=== PATIENT | male | born 1945 | race Caucasian/White ===

== ENCOUNTER → 2018-09-02 14:36 | Emergency (ER) | payer MEDICARE ==
[~2018-09-02 14:36] MED LIST: Dexamethasone IV* 4 MG/ML 1 ML (4 MG) IM ONE; Ketorolac INJ* 60 MG/2 ML VIAL IM ONE; Methocarbamol TAB* 500 MG PO ONE; oxyCODONE/Acetamin 5/325 MG* TAB PO ONE
--- OUTSIDE RECORDS SUMMARY | 2018-09-02 14:42 | XMS REPORT | Continuity of Care Document ---
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 Onset: 2015 Vitreous degeneration Kenton Oquendo M.D. Onset: 12/21/2014 Epiretinal membrane Kenton Oquendo M.D. Onset: 07/27/2014 Nuclear senile cataract Kenton Oquendo M.D. Onset: 12/28/2013 Presbyopia Kenton Oquendo M.D. Onset: 09/02/2013 Open-angle glaucoma Kenton Oquendo M.D. Onset: 09/02/2013 Retinal disorder Kenton Oquendo M.D. Onset: 09/02/2013 Family History Date Family Member(s) Observation Comments General Glaucoma General High BP Father Noncontributory Mother Glaucoma Mother Cataract Mother High BP Mother Cancer Social History Type Date Description Comments Sex Unknown ETOH Use Denies alcohol use Tobacco Use Start: Unknown Patient has never smoked Smoking Status Reviewed: 08/31/18 Patient has never smoked Allergies, Adverse Reactions, Alerts Active Allergies Reaction Severity Comments Date NKDA 08/30/2013 Seasonal 10/22/2016 Medications Active Medications SIG Qnty Indications Ordering Date Provider Latanoprost 1 drops both 7.5ml Pradeep Joseph, 05/17/2018 0.005% Solution eyes every OD night Dutasteride Unknown 0.5mg Capsules Alfuzosin HCL ER Unknown 10mg Tablets ER 24HR Hydrochlorothiazide Mandy MILIAN, 25mg Tablets Benigno Doxycycline Hyclate take 2 capsules Unknown 100mg by mouth as Capsules Single Dose Pantoprazole Sodium take 1 tablet Unknown 40mg Tablets by mouth once DR rachna Calcipotriene MD Dominguez, 0.005% Cream Rohit Sucralfate Unknown 1gm Tablets Nexium MD Dominguez, 40mg Capsules DR Bee Lansoprazole MD Dominguez, 30mg Capsules DR Bee Omeprazole Unknown Capsules Chlordiazepoxide Unknown HCL/Clidinium Fowler Capsules Amitriptyline HCL Unknown Tablets Aleve as needed Unknown 220mg Tablets History Medications Latanoprost 1 drops both 7.5ml Pradeep Joseph, 07/13/2017 - 0.005% Solution eyes every night OD 05/17/2018 Latanoprost 1 drops both 7.500ml Pradeep Joseph, 03/24/2017 - 0.005% Solution eyes every night OD 07/13/2017 Latanoprost 1 drops both 7.5ml Pradeep Joseph, 12/17/2016 - 0.005% Solution eyes every night OD 03/24/2017 Latanoprost 1 drops both 7.5ml Pradeep Joseph, 09/22/2016 - 0.005% Solution eyes every night OD 12/17/2016 Travatan Z one drop every 7.5ml Pradeep Joseph, 08/18/2016 - 0.004% Solution night at bedtime OD 09/22/2016 both eyes Latanoprost 1 drops both 7.5ml Pradeep Joseph, 05/16/2016 - 0.005% Solution eyes every night OD 09/22/[address] 1 drop 2.5units Kenton Oquendo, 09/02/2013 - 0.005% Solution into both eyes M.D. 05/16/2016 every night Ciprofloxacin HCL Instill 5 Drops Unknown - 0.3% In Ears Every 12 08/13/2017 Solution Hours For 10 Days Vital Signs Date Vital Result Comment 06/01/2018 9:15am Intraocular Pressure Right Eye 15 mmHg Intraocular Pressure Left Eye 14 mmHg 03/01/2018 9:18am Intraocular Pressure Right Eye 15 mmHg Intraocular Pressure Left Eye 14 mmHg 11/13/2017 8:52am Intraocular Pressure Right Eye 14 mmHg Intraocular Pressure Left Eye 14 mmHg 08/13/2017 9:11am Intraocular Pressure Right Eye 15 mmHg Intraocular Pressure Left Eye 15 mmHg 01/22/2017 3:39pm Intraocular Pressure Right Eye 14 mmHg Intraocular Pressure Left Eye 14 mmHg 10/22/2016 8:15am Intraocular Pressure Right Eye 14 mmHg Intraocular Pressure Left Eye 14 mmHg 07/23/2016 9:13am Intraocular Pressure Right Eye 15 mmHg Intraocular Pressure Left Eye 15 mmHg 04/24/2016 9:20am Intraocular Pressure Right Eye 14 mmHg Intraocular Pressure Left Eye 14 mmHg 01/02/2016 11:57am Intraocular Pressure Right Eye 15 mmHg Intraocular Pressure Left Eye 15 mmHg 07/23/2015 8:15am Intraocular Pressure Right Eye 15 mmHg Intraocular Pressure Left Eye 16 mmHg 04/20/2015 1:37pm Intraocular Pressure Right Eye 14 mmHg Intraocular Pressure Left Eye 14 mmHg 11/09/2014 8:52am Intraocular Pressure Right Eye 15 mmHg Intraocular Pressure Left Eye 15 mmHg 07/27/2014 8:04am Intraocular Pressure Right Eye 18 mmHg Intraocular Pressure Left Eye 18 mmHg 04/25/2014 9:38am Intraocular Pressure Right Eye 15 mmHg Intraocular Pressure Left Eye 14 mmHg 12/28/2013 10:08am Intraocular Pressure Right Eye 15 mmHg Intraocular Pressure Left Eye 15 mmHg 10/19/2013 3:02pm Intraocular Pressure Right Eye 14 mmHg Intraocular Pressure Left Eye 14 mmHg 09/22/2013 9:58am Intraocular Pressure Right Eye 16 mmHg Intraocular Pressure Left Eye 17 mmHg 09/02/2013 10:54am Intraocular Pressure Right Eye 23 mmHg Intraocular Pressure Left Eye 23 mmHg Procedures Date Code Description Status 08/31/2018 07615 Oct, Optic Nerve Completed 08/31/2018 02650 Eye Exam Est Intermediate Completed 06/01/2018 53708 Visual Field Exam Extended, Unilateral Or Bilateral Completed 06/01/2018 54354 Eye Exam Est Intermediate Completed 11/13/2017 86491 Fundus Photography W/Interpretation & Report Completed 11/13/2017 79832 Ophthalmoscopy Subsequent Completed 11/13/2017 78790 Refraction Completed 11/13/2017 28948 Eye Exam Est Intermediate Completed 08/13/2017 86914 Oct, Optic Nerve Completed 08/13/2017 58509 Eye Exam Est Intermediate Completed 05/05/2017 38823 Visual Field Exam Extended, Unilateral Or Bilateral Completed 05/05/2017 75931 Eye Exam Est Intermediate Completed 10/22/2016 42312 Eye Exam Est Comprehensive Completed 10/22/2016 34535 Refraction Completed 10/22/2016 65717 Ophthalmoscopy Subsequent Completed 10/22/2016 72322 Fundus Photography W/Interpretation & Report Completed 07/23/2016 32914 Oct, Optic Nerve Completed 07/23/2016 11874 Eye Exam Est Intermediate Completed 04/24/2016 35092 Oct Retina Completed 04/24/2016 96485 Visual Field Exam Extended, Unilateral Or Bilateral Completed 04/24/2016 71061 Eye Exam Est Intermediate Completed 01/02/2016 75851 Eye Exam Est Intermediate Completed 10/23/2015 76156 Visual Field Exam Extended, Unilateral Or Bilateral Completed 10/23/2015 71943 Visual Field Exam Extended, Unilateral Or Bilateral Completed 07/23/2015 00567 Eye Exam Est Intermediate Completed 07/23/2015 34783 Refraction Completed 07/23/2015 87215 Fundus Photography W/Interpretation & Report Completed 04/20/2015 27292 Oct, Optic Nerve Completed 04/20/2015 21420 Eye Exam Est Intermediate Completed 01/11/2015 80530 Ophthalmoscopy Subsequent Completed 01/11/2015 88032 Eye Exam Est Intermediate Completed 12/21/2014 15637 Ophthalmoscopy Subsequent Completed 12/21/2014 81392 Eye Exam Est Intermediate Completed 11/09/2014 60881 Oct Retina Completed 11/09/2014 76706 Visual Field Exam Extended, Unilateral Or Bilateral Completed 11/09/2014 49351 Eye Exam Est Intermediate Completed 07/27/2014 68556 Eye Exam Est Intermediate Completed 07/27/2014 97224 Fundus Photography W/Interpretation & Report Completed 04/25/2014 12922 Refraction Completed 04/25/2014 95573 Eye Exam Est Intermediate Completed 10/19/2013 92418 Visual Field Exam Extended, Unilateral Or Bilateral Completed 10/19/2013 13682 Eye Exam Est Intermediate Completed 09/22/2013 02686 Eye Exam Est Intermediate Completed 09/02/2013 90956 Fundus Photography W/Interpretation & Report Completed 09/02/2013 06401 Refraction Completed 09/02/2013 22317 Eye Exam Est Comprehensive Completed 06/30/2011 02983 Fundus Photography W/Interpretation & Report Completed 06/30/2011 95376 Ophthalmoscopy Initial Completed 06/30/2011 78761 Eye Exam New Comprehensive Completed 06/30/2011 45391 Corneal Pachymetry, Unilateral/Bilateral Completed Encounters Type Date Location Provider Dx Diagnosis Office Visit 03/01/2018 Main Office Pradeep Joseph, OD H40.1131 Primary open-angle 9:15a glaucoma, bilateral, mild stage Office Visit 01/22/2017 Main Office Pradeep Joseph, OD H40.1131 Primary open-angle 3:15p glaucoma, bilateral, mild stage Office Visit 12/28/2013 Main Office Kenton Oquendo, 365.10 Glaucoma Open Angle 10:00a M.D. Unspec 366.16 Cataract Nuclear Sclerosis Plan of Treatment 08/31/2018 - Pradeep Joseph, ODH40.1131 Primary open-angle glaucoma, bilateral, mild [id number] Age-related nuclear cataract, bilateralFollow up:3 mos full, sooner PRN
--- OUTSIDE RECORDS SUMMARY | 2018-09-02 14:42 | XMS REPORT | Continuity of Care Document ---
:1945 External Reference #:[id number] Author Name Benigno Galvan M.D. Address [address] [facility] [address] [place] [address] Care Team Providers Name Role Phone HCP/LW on file Primary Care Physician Unavailable Payers Date Identification Numbers Payment Provider Subscriber Effective: Policy Number: [id number] [facility] [employer] 2010 PayID: [id number] [address] [place] [address] Effective: 2013 Policy Number: [facility] [employer] [id number] PayID: [id number] [address] [place] [address] Problems Active Problems Provider Date Shoulder joint pain Benigno Galvan M.D. Onset: 09/21/2013 Irritable bowel syndrome Benigno Galvan M.D. Onset: 09/21/2013 Secondary polycythemia Benigno Galvan M.D. Onset: 09/21/2013 Glaucoma Benigno Galvan M.D. Onset: 09/21/2013 Essential hypertension Benigno Galvan M.D. Onset: 04/18/2016 Low back pain Benigno Galvan M.D. Onset: 04/18/2016 Degeneration of lumbar intervertebral disc Benigno Galvan M.D. Onset: 04/18 Gastroesophageal reflux disease Benigno Galvan M.D. 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/2017 Family History Date Family Member(s) Observation Comments : (age Father due to 79 Years) ALS/PArkinson's Dz Father Skin Cancer Father Prostate Cancer Dx'd in his late 60s (had symptoms) Mother Skin Cancer : Mother due to Pancreatic (2014) (age 96 Cancer Years) Mother High Blood Pressure Mother Pancreatic Cancer Children 2 daughters Siblings 1 First Brother Hypercholesterolemia First Brother High Blood Pressure First Brother Obesity First Brother Heart Problems First Brother Skin Cancer Maternal Grandfather due to Pancreatic () Cancer Social History Type Date Description Comments Sex Unknown Education Highest Level Completed Post Grad Marital Status Work Status 2007 Retired from [employer]; worked in various capacities ([employer]) Tobacco Use Reviewed: Denies Cigarette Use 01/16/14 Smoking Status Reviewed: Denies Cigarette Use 01/16/14 ETOH Use Denies alcohol use Recreational Drug Use Denies Drug Use Exercise Type/Frequency Exercises regularly Age 1st Brusly 20 Years Old # [facility] [employer] [facility] Partners 1-5 Allergies, Adverse Reactions, Alerts Description No Known Drug Allergies Medications Active Medications SIG Qnty Indications Ordering Date Provider Dutasteride 1 tab by mouth every N40.1 Garrick Aguila, 08/22/2018 0.5mg day for enlarged MD Capsules prostate Sulfamethoxazole/Tri one tab twice daily Rayshawn Flores, 08/20/2018 methoprim DS MD 800-160mg Tablets Sildenafil Citrate 3-5 tabs as needed; 60tabs N52.9 Silco, 07/30/2018 for erectile Ashley Pelaez 20mg Tablets dysfunction; use up to once per day Melatonin 1 per sleep, as K21.9 Unknown 06/15/2018 5mg needed, otc Capsules Ketoconazole as directed Unknown 06/11/2018 2% Shampoo Alfuzosin HCL ER 1 tablet daily, at N40.1 Rayshawn Flores, 06/02/2018 10mg the same time every MD Tablets ER 24HR day, taken right after a meal; for enlarged prostate and to improve bladder emptying PT For Left please evaluate and M25.552 [place], 03/22/2018 Buttock/Hip Pain, treat, modalities as Ashley Pelaez Uncertain Etiology needed, instruct in hep Nexium 24HR 1 by mouth every day Unknown 03/21/[address] Payne Every 12 Hours as Unknown 12/15/2017 220mg Tablets needed for pain Posture-D 1 tab by mouth twice Silcoff, 06/15/2017 Calcium/Magnesium a day Ashley Pelaez [phone] Tablets Aspirin 1 by mouth every day Mandy, 05/27/2017 81mg Tablets for heart disease Ashley Pelaez prevention Osteo Bi-Flex 1 tablet by mouth Unknown 12/14/2016 Advanced Triple three times daily Strength 750mg/137.5 mg/1,000 Iu Tablets Fish Oil 1 by mouth every day Unknown 12/14/2016 1200mg Capsules Folate 1 daily Unknown 12/14/2016 400mcg Vitamin B Complex 1 by mouth once Unknown 12/14/2016 daily Tablets Culturelle/Probiotic 1 po daily OTC Unknown 03/05/2016 s Capsules Preservision Areds 2 1 by mouth twice a Unknown 05/21/2015 day taken with food; Areds 2 Capsules for macular degeneration Gaviscon Extra 2-3 as needed for Unknown 05/21/2015 Strength GERD 160-105mg Chewtabs Move-Free Ultra daily Unknown 04/24/2014 Latanoprost 1 drop each eye H40.9 Kenton Oquendo 09/02/2013 0.005% daily; for glaucoma [facility] Solution Gold Ultimate as directed on L40.9 Unknown Healing Cream With coccyx region, outer [place] ears and forehead-tx for psoriasis Centrum 1 po daily otc Unknown Tablets Coq-10 1 po daily otc Unknown 120mg Capsules Saw [place] 1 po three times OTC Unknown 450mg daily Capsules History Medications Ciprofloxacin HCL 1 by mouth twice a 6tabs Mandy, 06/07/2018 - 500mg day for up to 3 Ashley Pelaez 06/10/2018 Tablets days, for acute diarrhea PT For Right Knee evaluate and M25.561 Mandy, 01/19/2018 - Pain W/ Advanced OA treat, modalities Ashley Pelaez 03/21/2018 as needed, instruct in [facility] M17.11 Melatonin 1 po as directed K21.9 Unknown 12/16/2017 - 1.5mg 06/16/2018 Capsules PT For Bilateral evaluate and treat, M25.542 Benigno Galvan, 09/04/2017 - Hand Pain instruct in Ashley martínez 03/21/2018 modalities prn M25.541 M65.331 Shingrix administer 2 2units Z23 Silcoff, 06/15/2017 - 50mcg Suspension Rec doses as Ashley Pelaez 07/15/2017 directed, per cdc guidelines Hydrochlorothiazide take 1-2 180caps I10 Silcoclaudine, 06/14/2017 - 12.5mg capsules by Ashley Pelaez 06/16/2018 Capsules mouth every 1-2 days, for high blood pressure Apriso 4 tabs by mouth K52.832 Unknown 06/11/2017 - 0.375gm Caps ER 24HR every day for 09/03/2017 chronic diarrhea R19.7 Celecoxib 1 by mouth every 30caps M54.5 Silcoff, 05/27/2017 - 200mg Capsules day as needed for Ashley Pelaez 09/03/2017 back pain (to use instead of aleve or ibuprofen) Nexium 24HR 1 tablet by mouth Unknown 05/26/2017 - 20mg Tablets DR daily 09/03/2017 Dicyclomine HCL 1-2 by mouth 30caps R10.32 Silcoff, 05/04/2017 - 10mg Capsules three times a day Ashley Pelaez 05/14/2017 as needed for abdominal pain Hydrochlorothiazide 1 by mouth every I10 Unknown 03/25/2017 - 12.5mg morning for high 06/14/2017 Capsules blood pressure Posture-D 1 at noon and 2 Unknown 12/14/2016 - Calcium/Magnesium in the evening 06/15/2017 [phone] Tablets Primal Defense Ultra 1 in the evening Unknown 12/14/2016 - 06/14/2017 Aleve as needed, as Unknown 12/14/2016 - 220mg Tablets directed 05/27/2017 Omeprazole 1 by mouth every K21.9 Unknown 12/14/2016 - 20mg Capsules DR day 03/02/2017 Nexium 24HR 1 tablet po daily Unknown 08/01/2016 - 20mg Tablets DR 12/14/2016 Omeprazole 1 by mouth twice K21.9 Unknown 07/31/2016 - 20mg Capsules DR a day for acid 08/01/2016 reflux Hydrochlorothiazide 1 by mouth every I10 Silcoff, 06/13/2016 - 12.5mg morning for high Ashley Pelaez 03/25/2017 Capsules blood pressure Esomeprazole Magnesium 1 by mouth K21.9 Silcoff, 06/13/2016 - 20mg 1-2x/day for acid Ashley Pelaez 07/31/2016 Capsules reflux Hydrochlorothiazide take 1 tablet 90tabs I10 Mandy, 04/18/2016 - 25mg every morning for Ashley Pelaez 06/13/2016 Tablets high blood pressure Hydrochlorothiazide 2 every day for 90caps I10 Tom Wills 03/06/2016 - 12.5mg blood pressure Ashley Perales 04/18/2016 Capsules (take at the same time ) Esomeprazole Magnesium 1 capsule by Mandy, 12/14/2015 - 20mg mouth daily for Ashley Pelaez 06/13/2016 Capsules GI protection (while taking NSAIDs) PT For Mid Back Pain please evaluate M54.6 Mandy, 12/14/2015 - and treatBenigno M.D. 06/12/2016 instruct in hep, modalities prn to include aquatherapy Aleve as needed Unknown 12/13/2015 - 220mg Tablets migraine, body 03/16/2016 aches Vitamin D3 Complete 1 tabtwo times a Unknown 05/21/2015 - 400mg day 03/05/2016 Tablets Naproxen Sodium 1 pill as needed Unknown 05/21/2015 - 220mg Tablets up to 3 times a 03/05/2016 day Esomeprazole Magnesium 1 by mouth a day Unknown 05/21/2015 - 20mg 12/13/2015 Capsules Omeprazole 1 by mouth every 90caps 530.81 Mandy, 09/15/2014 - 40mg Capsules DR morning for acid Ashley Pelaez 12/11/2014 reflux (to replace Nexium) Ranitidine HCL take 1 tab by 90tabs 530.81 Mandy, 09/15/2014 - 150mg Tablets mouth in the Ashley Pelaez 12/11/2014 evening (and take nexium in the morning); for acid reflux Nexium 24HR 2 by mouth once a 530.81 Unknown 09/14/2014 - 20mg Capsules DR day for acid 09/15/2014 reflux Augmentin 1 tab twice a day 20tabs 380.22 Tom Wills 08/07/2014 - 875-125mg Tablets with food for 10 Ashley Perales 08/18/2014 days Ciprodex 4 drops in the 7.500ml 380.22 Tom Wills 08/07/2014 - 0.3-0.1% Suspension left ear canal Ashley Perales 08/14/2014 twice daily or a week. Nexium 1 by mouth every Unknown 08/04/2014 - 20mg Capsules DR day 09/14/2014 PT For Low Back Pain/DDD please evaluate 724.2 Mandy, 04/25/2014 - and treatBenigno M.D. 12/11/2014 modalities as needed, instruct in hep; please offer aquatherapy Chlordiazepoxide 1 by mouth 2 50caps K58.9 Silcoclaudine, 04/25/2014 - HCL/Clidinium Shannon times a day as Ashley Pelaez 12/14/2016 5-2.5mg needed for Capsules spastic colon Viagra 1/2-1 by mouth 12tabs N52.9 Silcoclaudine, 04/25/2014 - 100mg Tablets every day as Ashley Pelaez 07/30/2018 needed for erectile dysfunction; max 1 dose/day PT For Right Shoulder evaluate and 719.41 Silcoclaudine, 09/21/2013 - Pain treat, modalities Ashley Pelaez 01/15/2014 prn, instruct in hep 726.10 Amitriptyline HCL 1 by mouth every day as 564.1 Unknown 09/01/2013 - 10mg needed for spastic 04/04/2014 Tablets colon; use if not responding to chlordiazepoxide Chlordiazepoxide 1 by mouth 2 times a day 564.1 Unknown 08/24/2013 - HCL/Clidinium Shannon as needed for spastic 04/25/2014 2.5-5mg colon Capsules Lansoprazole 1 capsule po daily as 530.81 Unknown 05/17/2013 - 30mg Capsules DR needed for GERD 05/07/2014 Zinc 1 po daily otc Unknown - 50mg Tablets 05/21/2015 Osteo Bi-Flex Regular 1 tab po three times Unknown - Strength daily 12/15/2016 700-625-1.5-30mg Tablets Vitamin D3 1 po daily OTC Unknown - 1000Unit Capsules 03/05/2016 Vitamin D3 1 po twice daily otc Unknown - 400Unit Capsules 03/05/2016 Posture-D 1 by mouth at noon and 2 Unknown - Calcium/Magnesium in the evening 12/15/2016 [phone] Tablets Magnesium 1 po twice daily Unknown - 250mg Tablets 06/15/2017 [place] 3 Factors 1 po twice daily OTC Unknown - 05/21/2015 Gaviscon as needed for GERD Unknown - 12/11/2014 Aleve as directed prn otc Unknown - 220mg Tablets 09/04/2014 Aspirin 81 1 po twice daily otc Unknown - 81mg Tablets 05/27/2017 Medications Administered in Office Medication SIG Qnty Indications Ordering Provider Date injection, kenalog, 10 mg Benigno Galvan M.D. 03/03/2017 Injection Immunizations CPT Code Status Date Vaccine Lot # [id number] Given 12/03/2017 Shingrix Zoster (Shingles) Vaccine (HZV) Recomb,Subnit,Adjuvanted 35512 Given 11/30/2017 Influenza Vaccine Split Virus Preservative Free Im [id number] Use 78910 Given 06/16/2017 Shingrix Zoster (Shingles) Vaccine (HZV) Recomb,Subnit,Adjuvanted 15676 Given 12/15/2016 Influenza Virus Vaccine, Quadrivalent, Split, [id number] Preservative Free 83831 Given 12/14/2015 Pneumococcal Immunization [id number] 96188 Given 12/06/2015 Influenza Vaccine Split Virus Preservative Free Im [id number] Use 45777 Given 12/12/2014 Prevnar 13 [id number] 43269 Given 01/28/2014 Influenza Vaccine Split Virus Preservative Free Im [id number] Use 55386 Given 03/03/2012 Zostavax 31340 Given 03/03/2012 Adacel or Boostrix, TDaP 60005 Given 06/12/2008 Pneumococcal Immunization Vital Signs Date Vital Result Comment 08/23/2018 2:23pm BP Systolic 132 mmHg BP Diastolic 70 mmHg Weight 208.50 lb with shoes 06/16/2018 8:42am BP Systolic 138 mmHg RN R arm, sitting BP Diastolic 74 mmHg RN R arm, sitting BP Systolic Recheck 147 mmHg R arm sitting, pt's machine, 2nd reading 135/76 BP Diastolic Recheck 77 mmHg R arm sitting, pt's machine, 2nd reading 135/76 Heart Rate 63 /min Height 70.50 inches 5'10.50" Weight 216.00 lb BMI (Body Mass Index) 30.6 kg/m2 05/25/2018 10:25am BP Systolic 136 mmHg BP Diastolic 78 mmHg 05/07/2018 2:40pm BP Systolic 136 mmHg BP Diastolic 82 mmHg Height 70.50 inches 5'10.50" Weight 213.50 lb BMI (Body Mass Index) 30.2 kg/m2 03/22/2018 5:03pm BP Systolic 134 mmHg BP Diastolic 76 mmHg Weight 215.00 lb w/shoes 03/05/2018 12:30pm BP Systolic 138 mmHg BP Diastolic 74 mmHg Weight 219.00 lb w/shoes 12/21/2017 12:07pm BP Systolic 126 mmHg BP Diastolic 70 mmHg 12/16/2017 8:58am BP Systolic 136 mmHg BP Diastolic 76 mmHg BP Systolic Recheck 140 mmHg R arm sitting BP Diastolic Recheck 80 mmHg R arm sitting Height 72 inches 6'0" w/shoes Weight 216.00 lb w/shoes BMI (Body Mass Index) 29.3 kg/m2 11/30/2017 10:11am BP Systolic 162 mmHg BP Diastolic 82 mmHg BP Systolic Recheck 136 mmHg w/bigger cuff ~5 min after first reading BP Diastolic Recheck 78 mmHg w/bigger cuff ~5 min after first reading 11/06/2017 12:06pm BP Systolic 146 mmHg 138/80-taken again per pt req BP Diastolic 80 mmHg 138/80-taken again per pt req Weight 217.00 lb 09/28/2017 2:57pm BP Systolic 138 mmHg BP Diastolic 76 mmHg Weight 218.00 lb 09/04/2017 2:21pm BP Systolic 122 mmHg BP Diastolic 80 mmHg Weight 218.00 lb with shoes 08/10/2017 2:43pm BP Systolic 130 mmHg BP Diastolic 64 mmHg Weight 217.00 lb 06/15/2017 10:08am BP Systolic 122 mmHg BP Diastolic 66 mmHg Height 71 inches 5'11" Weight 219.00 lb BMI (Body Mass Index) 30.5 kg/m2 05/27/2017 9:34am BP Systolic 130 mmHg BP Diastolic 78 mmHg Weight 217.00 lb with shoes 05/04/2017 3:36pm BP Systolic 140 mmHg BP Diastolic 80 mmHg Weight 215.00 lb w/shoes 04/01/2017 3:47pm BP Systolic 122 mmHg BP Diastolic 80 mmHg Height 70.5 inches 5'10.50" Weight 215.00 lb BMI (Body Mass Index) 30.4 kg/m2 03/03/2017 2:19pm BP Systolic 142 mmHg BP Diastolic 88 mmHg Weight 218.00 lb with shoes 01/16/2017 2:14pm BP Systolic 136 mmHg BP Diastolic 80 mmHg Body Temperature 97.8 F Weight 210.00 lb w/shoes 12/26/2016 11:36am BP Systolic 134 mmHg BP Diastolic 74 mmHg 12/15/2016 8:57am BP Systolic 140 mmHg BP Diastolic 80 mmHg BP Systolic Recheck 148 mmHg R arm sitting BP Diastolic Recheck 84 mmHg R arm sitting Weight 215.00 lb w/shoes 11/11/2016 1:34pm BP Systolic 126 mmHg BP Diastolic 72 mmHg BP Systolic Recheck 136 mmHg R arm sitting BP Diastolic Recheck 80 mmHg R arm sitting Weight 216.00 lb w/shoes 08/01/2016 4:05pm BP Systolic 122 mmHg BP Diastolic 70 mmHg Weight 219.00 lb with shoes 07/11/2016 2:53pm BP Systolic 128 mmHg BP Diastolic 74 mmHg Body Temperature 98.2 F 06/13/2016 10:19am BP Systolic 124 mmHg BP Diastolic 68 mmHg BP Systolic Recheck 126 mmHg R arm sitting BP Diastolic Recheck 78 mmHg R arm sitting Heart Rate 72 /min reg Height 71 inches 5'11" Weight 223.00 lb w/shoes BMI (Body Mass Index) 31.1 kg/m2 05/09/2016 4:47pm BP Systolic 122 mmHg BP Diastolic 82 mmHg Body Temperature 98.1 F Weight 218.00 lb 04/18/2016 9:36am BP Systolic 122 mmHg BP Diastolic 70 mmHg BP Systolic Recheck 136 mmHg R arm sitting BP Diastolic Recheck 78 mmHg R arm sitting Height 71 inches 5'11" Weight 218.00 lb w/shoes BMI (Body Mass Index) 30.4 kg/m2 03/17/2016 10:11am BP Systolic 134 mmHg k BP Diastolic 62 mmHg k BP Systolic Recheck 146 mmHg 158/76, 149/78 pt [place] BP Diastolic Recheck 76 mmHg 158/76, 149/78 pt [place] Heart Rate 76 /min rrr Respiratory Rate 16 /min 03/06/2016 11:12am BP Systolic 168 mmHg k BP Diastolic 88 mmHg k Heart Rate 70 /min Weight 218.00 lb with shoes 12/14/2015 3:01pm BP Systolic 152 mmHg BP Diastolic 78 mmHg 11/13/2015 10:50am BP Systolic 132 mmHg BP Diastolic 78 mmHg Body Temperature 97.7 F Weight 222.00 lb w/shoes 09/08/2015 8:52am BP Systolic 128 mmHg BP Diastolic 80 mmHg Weight 221.00 lb 07/27/2015 10:51am BP Systolic 132 mmHg BP Diastolic 80 mmHg Height 71 inches 5'11" Weight 226.00 lb BMI (Body Mass Index) 31.5 kg/m2 06/29/2015 2:46pm BP Systolic 142 mmHg BP Diastolic 85 mmHg 06/13/2015 10:39am BP Systolic 143 mmHg R arm w his cuff BP Diastolic 84 mmHg R arm w his cuff BP Systolic Recheck 140 mmHg R arm w our cuff BP Diastolic Recheck 86 mmHg R arm w our cuff Heart Rate 66 /min reg 06/13/2015 10:17am BP Systolic 136 mmHg BP Diastolic 82 mmHg 05/22/2015 11:06am BP Systolic 158 mmHg R arm sitting BP Diastolic 92 mmHg R arm sitting BP Systolic Recheck 172 mmHg per RN BP Diastolic Recheck 96 mmHg per RN Height 72 inches 6'0" Weight 217.00 lb BMI (Body Mass Index) 29.4 kg/m2 12/12/2014 11:49am BP Systolic 130 mmHg BP Diastolic 70 mmHg Weight 217.00 lb 09/15/2014 11:49am BP Systolic 138 mmHg BP Diastolic 90 mmHg Weight 212.00 lb 08/08/2014 1:58pm BP Systolic 128 mmHg BP Diastolic 70 mmHg Body Temperature 98.2 F 08/07/2014 10:35am Weight 221.00 lb 04/25/2014 2:27pm BP Systolic 156 mmHg BP Diastolic 90 mmHg BP Systolic Recheck 138 mmHg R arm sitting BP Diastolic Recheck 84 mmHg R arm sitting Height 71.5 inches 5'11.50" Weight 218.50 lb BMI (Body Mass Index) 30.0 kg/m2 01/28/2014 11:19am BP Systolic 138 mmHg BP Diastolic 96 mmHg Body Temperature 98.3 F Weight 222.00 lb shoes on 01/16/2014 9:01am BP Systolic 138 mmHg BP Diastolic 82 mmHg Weight 221.00 lb shoes on 09/21/2013 9:58am BP Systolic 144 mmHg BP Diastolic 86 mmHg Height 71 inches 5'11" Weight 215.00 lb BMI (Body Mass Index) 30.0 kg/m2 Results Test Date Facility Test Result H/L Range Note PSA Free And Total 05/25/2018 [facility] PSA Total 2.1 ng/mL <=6.5 [phone] PSA Free 0.4 ng/mL PSA Free/Total See Comment ratio 1 Basic Metabolic Panel 05/25/2018 [facility] Sodium 137 mmol/L N 135- 145 [phone] Potassium 4.4 mmol/L N 3.5-5.0 Chloride 102 mmol/L N 101-111 Co2 Carbon Dioxide 28 mmol/L N 22-32 Anion Gap 7 mmol/L N 2-11 Glucose 101 mg/dL High 70-100 Blood Urea Nitrogen 22 mg/dL N 6-24 Creatinine 1.09 mg/dL N 0.67-1.17 BUN/Creatinine Ratio 20.2 High 8-20 Calcium 9.5 mg/dL N 8.6-10.3 Egfr Non- 66.5 >60 Egfr 80.5 >60 2 CBC Auto Diff 05/25/2018 [facility] White Blood Count 5.9 10^3/uL N 3.5-10.8 [phone] Red Blood Count 6.06 10^6/uL High 4.00-5.40 Hemoglobin 18.4 g/dL High 14.0-18.0 Hematocrit 54 % High 42-52 Mean Corpuscular Volume 90 fL N 80-94 Mean Corpuscular Hemoglobin 30 pg N 27-31 Mean Corpuscular HGB Conc 34 g/dL N 31-36 Red Cell Distribution Width 14 % N 10.5-15 Platelet Count 247 10^3/uL N 150-450 Mean Platelet Volume 8.7 fL N 7.4-10.4 Abs Neutrophils 3.7 10^3/uL N 1.5-7.7 Abs Lymphocytes 1.1 10^3/uL N 1.0-4.8 Abs Monocytes 0.8 10^3/uL N 0-0.8 Abs Eosinophils 0.2 10^3/uL N 0-0.6 Abs Basophils 0 10^3/uL N 0-0.2 Abs Nucleated RBC 0 10^3/uL Granulocyte % 62.6 % Lymphocyte % 19.2 % Monocyte % 14.4 % Eosinophil % 3.2 % Basophil % 0.6 % Nucleated Red Blood Cells % 0.1 Urine Micro Inhouse 06/15/2017 In House Ua WBC - 3 Ua RBC - Ua Casts - Ua Epi - Ua Other - Ua Glucose - Ua Bilirubin - Ua Ketones - Ua Specific Ross 1.010 Ua Blood - Ua PH 6.0 Ua Protein - Ua Urobilinogen - Ua Nitrite - Ua Leukocytes - Laboratory test 06/15/2017 [facility] PSA Screening 2.120 ng/mL N 0- 4.000 4 finding [phone] Basic Metabolic Panel 06/15/2017 [facility] Sodium 136 mmol/L N 133- 145 [phone] Potassium 4.7 mmol/L N 3.5-5.0 Chloride 102 mmol/L N 101-111 Co2 Carbon Dioxide 29 mmol/L N 22-32 Anion Gap 5 mmol/L N 2-11 Glucose 87 mg/dL N 70-100 Blood Urea Nitrogen 21 mg/dL N 6-24 Creatinine 1.15 mg/dL N 0.67-1.17 BUN/Creatinine Ratio 18.3 N 8-20 Calcium 9.7 mg/dL N 8.6-10.3 Egfr Non- 62.7 >60 Egfr 80.6 >60 5 Laboratory test 05/22/2017 [facility] Surgical Pathology SEE RESULT 6, 7 finding [phone] BELOW Laboratory test 04/15/2017 [facility] Erythropoietin 11.7 mIU/mL 2.6 - 8 finding [phone] 18.5 Jak2 Mutation 04/15/2017 [facility] Jak2 V617F Mutation See Comment 9 Analysis Blood [phone] Detection CBC Auto Diff 04/01/2017 [facility] White Blood Count 7.0 10^3/uL N 3.5-3 [phone] 0.8 Red Blood Count 6.02 10^6/uL High 4.0-5.4 Hemoglobin 18.5 g/dL High 14.0-18.0 Hematocrit 53 % High 42-52 Mean Corpuscular Volume 89 fL N 80-94 Mean Corpuscular Hemoglobin 31 pg N 27-31 Mean Corpuscular HGB Conc 35 g/dL N 31-36 Red Cell Distribution Width 15 % N 10.5-15 Platelet Count 270 10^3/uL N 150-450 Mean Platelet Volume 9 um3 N 7.4-10.4 Abs Neutrophils 4.3 10^3/uL N 1.5-7.7 Abs Lymphocytes 1.3 10^3/uL N 1.0-4.8 Abs Monocytes 1.2 10^3/uL High 0-0.8 Abs Eosinophils 0.2 10^3/uL N 0-0.6 Abs Basophils 0 10^3/uL N 0-0.2 Abs Nucleated RBC 0.01 10^3/uL Granulocyte % 60.6 % N 38-83 Lymphocyte % 18.8 % Low 25-47 Monocyte % 17.0 % High 1-9 Eosinophil % 3.3 % N 0-6 Basophil % 0.3 % N 0-2 Nucleated Red Blood Cells % 0.1 Laboratory test 01/17/2017 [facility] C Difficile B SEE RESULT 10 finding [phone] PCR BELOW Laboratory test 01/16/2017 [facility] TSH (Thyroid 3.00 mcIU/mL N 0.34-5. finding [phone] Stim Horm) 60 CBC Auto Diff 01/16/2017 [facility] White Blood 6.6 10^3/uL N 3.5- 10. [phone] Count 8 Red Blood Count 5.63 10^6/uL High 4.0-5.4 Hemoglobin 17.0 g/dL N 14.0-18.0 Hematocrit 50 % N 42-52 Mean Corpuscular Volume 88 fL N 80-94 Mean Corpuscular Hemoglobin 30 pg N 27-31 Mean Corpuscular HGB Conc 34 g/dL N 31-36 Red Cell Distribution Width 14 % N 10.5-15 Platelet Count 267 10^3/uL N 150-450 Mean Platelet Volume 8 um3 N 7.4-10.4 Abs Neutrophils 4.3 10^3/uL N 1.5-7.7 Abs Lymphocytes 1.0 10^3/uL N 1.0-4.8 Abs Monocytes 1.1 10^3/uL High 0-0.8 Abs Eosinophils 0.2 10^3/uL N 0-0.6 Abs Basophils 0 10^3/uL N 0-0.2 Abs Nucleated RBC 0.01 10^3/uL N Granulocyte % 64.7 % N 38-83 Lymphocyte % 14.4 % Low 25-47 Monocyte % 17.3 % High 1-9 Eosinophil % 3.1 % N 0-6 Basophil % 0.5 % N 0-2 Nucleated Red Blood Cells % 0.1 N Comp Metabolic Panel 01/16/2017 [facility] Sodium 138 mmol/L N 133- 145 [phone] Potassium 4.4 mmol/L N 3.5-5.0 Chloride 105 mmol/L N 101-111 Co2 Carbon Dioxide 25 mmol/L N 22-32 Anion Gap 8 mmol/L N 2-11 Glucose 83 mg/dL N 70-100 Blood Urea Nitrogen 23 mg/dL N 6-24 Creatinine 1.05 mg/dL N 0.67-1.17 BUN/Creatinine Ratio 21.9 High 8-20 Calcium 9.2 mg/dL N 8.6-10.3 Total Protein 6.7 g/dL N 6.4-8.9 Albumin 3.9 g/dL N 3.2-5.2 Globulin 2.8 g/dL N 2-4 Albumin/Globulin Ratio 1.4 N 1-3 Total Bilirubin 0.60 mg/dL N 0.2-1.0 Alkaline Phosphatase 85 U/L N 34-104 Alt 17 U/L N 7-52 Ast 18 U/L N 13-39 Egfr Non- 69.6 N >60 Egfr 89.5 N >60 11 Laboratory test 06/13/2016 [facility] PSA Screening 1.605 ng/mL N 0- 4.000 12 finding [phone] Hepatitis C Antibody Nonreactive N Nonreactive Urine Micro Inhouse 06/13/2016 In House Ua Specific Ross 1.010 Ua PH 6.5 Basic Metabolic Panel 04/15/2016 [facility] Sodium 136 mmol/L N 133- 145 [phone] Potassium 4.5 mmol/L N 3.5-5.0 Chloride 101 mmol/L N 101-111 Co2 Carbon Dioxide 28 mmol/L N 22-32 Anion Gap 7 mmol/L N 2-11 Glucose 100 mg/dL N 70-100 Blood Urea Nitrogen 22 mg/dL N 6-24 Creatinine 1.16 mg/dL N 0.67-1.17 BUN/Creatinine Ratio 19.0 N 8-20 Calcium 9.5 mg/dL N 8.6-10.3 Egfr Non- 62.2 N >60 Egfr 80.0 N >60 13 Laboratory test 03/18/2016 [facility] Surgical SEE RESULT 14 finding [phone] Pathology BELOW CBC Auto Diff 03/06/2016 [facility] White Blood 5.3 10^3/uL N 3.5- 10. [phone] Count 8 Red Blood Count 5.95 10^6/uL High 4.0-5.4 Hemoglobin 17.5 g/dL N 14.0-18.0 Hematocrit 53 % High 42-52 Mean Corpuscular Volume 88 fL N 80-94 Mean Corpuscular Hemoglobin 29 pg N 27-31 Mean Corpuscular HGB Conc 33 g/dL N 31-36 Red Cell Distribution Width 14 % N 10.5-15 Platelet Count 236 10^3/uL N 150-450 Mean Platelet Volume 9 um3 N 7.4-10.4 Abs Neutrophils 3.1 10^3/uL N 1.5-7.7 Abs Lymphocytes 1.2 10^3/uL N 1.0-4.8 Abs Monocytes 0.8 10^3/uL N 0-0.8 Abs Eosinophils 0.2 10^3/uL N 0-0.6 Abs Basophils 0 10^3/uL N 0-0.2 Abs Nucleated RBC 0 10^3/uL N Granulocyte % 58.3 % N 38-83 Lymphocyte % 22.5 % Low 25-47 Monocyte % 15.2 % High 1-9 Eosinophil % 3.3 % N 0-6 Basophil % 0.7 % N 0-2 Nucleated Red Blood Cells % 0 N Laboratory test 03/06/2016 [facility] TSH (Thyroid 3.92 mcIU/mL N 0.34-5.60 finding [phone] Stim Horm) Comp Metabolic 03/06/2016 [facility] Sodium 138 mmol/L N 133-145 Panel [phone] Potassium 4.9 mmol/L N 3.5-5.0 Chloride 104 mmol/L N 101-111 Co2 Carbon Dioxide 30 mmol/L N 22-32 Anion Gap 4 mmol/L N 2-11 Glucose 88 mg/dL N 70-100 Blood Urea Nitrogen 21 mg/dL N 6-24 Creatinine 1.00 mg/dL N 0.67-1.17 BUN/Creatinine Ratio 21.0 High 8-20 Calcium 9.5 mg/dL N 8.6-10.3 Total Protein 7.1 g/dL N 6.4-8.9 Albumin 4.0 g/dL N 3.2-5.2 Globulin 3.1 g/dL N 2-4 Albumin/Globulin Ratio 1.3 N 1-3 Total Bilirubin 0.70 mg/dL N 0.2-1.0 Alkaline Phosphatase 77 U/L N 34-104 Alt 29 U/L N 7-52 Ast 25 U/L N 13-39 Egfr Non- 73.9 N >60 Egfr 95.0 N >60 15 CBC Auto Diff 06/29/2015 [facility] White Blood Count 5.0 10^3/uL N 3.5-10.8 [phone] Red Blood Count 5.68 10^6/uL High 4.0-5.4 Hemoglobin 17.1 g/dL N 14.0-18.0 Hematocrit 51 % N 42-52 Mean Corpuscular Volume 90 fL N 80-94 Mean Corpuscular Hemoglobin 30 pg N 27-31 Mean Corpuscular HGB Conc 34 g/dL N 31-36 Red Cell Distribution Width 14 % N 10.5-15 Platelet Count 234 10^3/uL N 150-450 Mean Platelet Volume 9 um3 N 7.4-10.4 Abs Neutrophils 2.8 10^3/uL N 1.5-7.7 Abs Lymphocytes 1.3 10^3/uL N 1.0-4.8 Abs Monocytes 0.8 10^3/uL N 0-0.8 Abs Eosinophils 0.1 10^3/uL N 0-0.6 Abs Basophils 0 10^3/uL N 0-0.2 Abs Nucleated RBC 0 10^3/uL N Granulocyte % 55.8 % N 38-83 Lymphocyte % 26.2 % N 25-47 Monocyte % 15.3 % High 1-9 Eosinophil % 2.0 % N 0-6 Basophil % 0.7 % N 0-2 Nucleated Red Blood Cells % 0.1 N Basic Metabolic Panel 06/29/2015 [facility] Sodium 136 mmol/L N 133- 145 [phone] Potassium 4.2 mmol/L N 3.5-5.0 Chloride 105 mmol/L N 101-111 Co2 Carbon Dioxide 24 mmol/L N 22-32 Anion Gap 7 mmol/L N 2-11 Glucose 91 mg/dL N 70-100 Blood Urea Nitrogen 23 mg/dL N 6-24 Creatinine 1.16 mg/dL N 0.67-1.17 BUN/Creatinine Ratio 19.8 N 8-20 Calcium 9.0 mg/dL N 8.6-10.3 Egfr Non- 62.2 N >60 Egfr 80.0 N >60 16 Laboratory test 06/29/2015 [facility] PSA Screening 1.339 ng/mL N 0- 4.000 17 finding [phone] Laboratory test 06/29/2015 [facility] Surgical SEE RESULT 18 finding [phone] Pathology BELOW Laboratory test 04/25/2014 [facility] Glucose 79 mg/dL N 70-100 19, 20 finding [phone] PSA Screening 1.612 ng/mL N 0-4.000 21 Lipid Profile (Trig/Chol/HDL) 04/25/2014 [facility] Triglycerides 67 mg /dL N 22 [phone] Cholesterol 166 mg/dL N 23 HDL Cholesterol 46.5 mg/dL N 24 LDL Cholesterol 106 mg/dL N 25 Iron & Iron Binding Capacity 04/25/2014 [facility] Iron 204 g/dL N 50-212 [phone] Unsaturated Iron Binding 140 g/dL N Total Iron Binding Capacity 344 g/dL N 250-450 % Iron Saturation 59 % High 15-55 CBC Auto Diff 04/25/2014 [facility] White Blood Count 5.2 10^3/uL N 4.8-10.8 [phone] Red Blood Count 5.82 10^6/uL High 4.0-5.4 Hemoglobin 17.8 g/dL N 14.0-18.0 Hematocrit 53 % High 42-52 Mean Corpuscular Volume 91 fL N 80-94 Mean Corpuscular Hemoglobin 31 pg N 27-31 Mean Corpuscular HGB Conc 34 g/dL N 31-36 Red Cell Distribution Width 14 % N 10.5-15 Platelet Count 223 10^3/uL N 150-450 Mean Platelet Volume 9 um3 N 7.4-10.4 Abs Neutrophils 3.1 10^3/uL N 1.5-7.7 Abs Lymphocytes 1.2 10^3/uL N 1.0-4.8 Abs Monocytes 0.8 10^3/uL N 0-0.8 Abs Eosinophils 0.1 10^3/uL N 0-0.6 Abs Basophils 0 10^3/uL N 0-0.2 Abs Nucleated RBC 0 10^3/uL N Granulocyte % 58.7 % N 38-83 Lymphocyte % 23.2 % Low 25-47 Monocyte % 14.7 % High 1-9 Eosinophil % 2.7 % N 0-6 Basophil % 0.7 % N 0-2 Nucleated Red Blood Cells % 0.1 N 1 Ratio not calculated because clinical usefulness is not defined except in range of total PSA 4.0-10.0 ng/mL. ADDITIONAL INFORMATION The testing method is an electrochemiluminescence assay manufactured by [employer] and performed on the Modular or Francisco J system. Values obtained with different assay methods or kits may be different and cannot be used interchangeably. Test results cannot be interpreted as absolute evidence for the presence or absence of malignant disease. Test Performed by: [facility] [address] [place] [address] 2 Because ethnic data is not always readily available, this report includes an eGFR for both -Americans and non- Americans. The National Kidney Disease Education Program (NKDEP) does not endorse the use of the MDRD equation for patients that are not between the ages of 18 and 70, are , have extremes of body size, muscle mass, or nutritional status, or are non- or non-. According to the National Kidney Foundation, irrespective of diagnosis, the stage of the disease is based on the level of kidney function: Stage Description GFR(mL/min/1.73 m(2)) 1 Kidney damage with normal or decreased GFR 90 2 Kidney damage with mild decrease in GFR 60-89 3 Moderate decrease in GFR 30-59 4 Severe decrease in GFR 15-29 5 Kidney failure <15 (or dialysis) 3 void, clear, yellow 4 Serum levels of PSA measured using the [employer] DXI Hybritech immunoassay should not be interpreted as absolute evidence of the presence or absence of disease. The PSA value should be used in conjunction with other pertinent clinical diagnostic procedures. The values obtained with different assay methods or kits cannot be used interchangeably. 5 Because ethnic data is not always readily available, this report includes an eGFR for both -Americans and non- Americans. The National Kidney Disease Education Program (NKDEP) does not endorse the use of the MDRD equation for patients that are not between the ages of 18 and 70, are , have extremes of body size, muscle mass, or nutritional status, or are non- or non-. According to the National Kidney Foundation, irrespective of diagnosis, the stage of the disease is based on the level of kidney function: Stage Description GFR(mL/min/1.73 m(2)) 1 Kidney damage with normal or decreased GFR 90 2 Kidney damage with mild decrease in GFR 60-89 3 Moderate decrease in GFR 30-59 4 Severe decrease in GFR 15-29 5 Kidney failure <15 (or dialysis) 6 [id number] SEE RESULT BELOW Name: TONE POST : [address]: Jonathan Sanford MD Acct: [id number] Unit: [id number] AGE: 71 Location: [facility] Re05/22/17 SEX: M Status: REG REF SPEC: [id number] OZ: 05/22/17-[address] [facility] [address]: Jonathan Sanford MD REQ: [id number] RECD: 05/22/176905 STATUS: DONTA RIDDLE DR: Benigno Lewis MD _ ORDERED: LEVEL 4 COMMENTS: [id number] FINAL DIAGNOSIS Skin, right posterior neck hairline, excision: -- Prurigo nodularis. -- All margins are clear. PRE-OPERATIVE DIAGNOSIS Chronic irritating crusty lesion; priory history of psoriasis; suture wood 12 o?clock superior margin GROSS DESCRIPTION The specimen is received in formalin labeled, Excision Skin Lesion Right Posterior Neck Hairline, Suture Wood 12:00 Superior Margin, and consists of a 4.0 x 1.2 cm white-pink mildly bosselated hairbearing skin ellipse excised to a maximum depth of 0.6 cm. There is a suture attached to one short axis designating the 12:00 superior margin. The specimen is inked as follows: 12:00 half blue, 6:00 half black, 9:00 tip green serially sectioned from 9:00 to 3:00 and entirely submitted in cassettes A through E to include tips in cassette A. Signed (signature on file) Dora Seals MD 1240 END OF REPORT * ML=Testing performed at Main Lab DEPARTMENT OF PATHOLOGY, [address] [place] [address] Emre Canales M.D. Director [facility] # [id number] Test Performed by: [facility] - [address] [address] 9 Peripheral blood, JAK2 V617F mutation analysis: Negative for JAK2 V617F. A negative JAK2 V617F test result does not exclude the possibility of a myeloproliferative neoplasm (MPN). If clinical suspicion is high for primary myelofibrosis (PMF) or essential thrombocythemia (ET), consider additional testing for CALR with reflex to MPL (test ID: MPNCM). If clinical suspicion is high for polycythemia vera, the test JAK2 Exon 12 and Other Non-V617F Mutational Detection (test ID: JAKXB or JAKXM) could be considered. Clinicopathologic correlation is recommended for a definitive diagnosis. Signing Pathologist: Dot Stewart M.D. ADDITIONAL INFORMATION Method summary - JAK2 V617F analysis: Quantitative, allele-specific polymerase chain reaction (PCR) assay was performed using extracted genomic DNA to evaluate for the point mutation causing JAK2 V617F. The analytic sensitivity of this assay has been determined at 0.06% (see [facility] Interpretive Handbook for method details). This test was developed and its performance characteristics determined by [facility] in a manner consistent with CLIA requirements. This test has not been cleared or approved by the U.S. Food and Drug Administration. Test Performed by: [address] [address] 10 SEE RESULT BELOW Name: TONE POST : [address]: Benigno Galvan MD Acct: [id number] Unit: [id number] AGE: 71 Location: [facility] Re01/17/17 SEX: M Status: REG REF SPEC: [id number] OZ: 01/17/[address] [facility] [address]: Benigno Galvan MD REQ: [id number] RECD: 01/17/17 STATUS: COMP _ SOURCE: STOOL SPDESC: ORDERED: C. diff PCR/S, Stool Culture/R, Fecal Lactoferr/R, O P: Giar/Crypt/ R Procedure Result Reported Site Stool Culture Final 01/19/17- 1145 ML Result No enteric pathogens isolated Testing for Salmonella, Shigella, Aeromonas, Plesiomonas, Yersinia and Campylobacter are included in a Stool Culture. Vibrio spp not routinely tested for in a stool culture. If testing is desired, please request specifically when placing test order. Sensitivities not routinely performed on stool isolates, as antibiotics may prolong the carriage rate of bacteria. Please contact the microbiology lab if sensitivities are required. Stool Specimen Description Final 01/17/17- 1751 ML Stool Color Dark Brown Stool Form Semi-formed Stool Consistency Soft Shiga Toxin 1 2 Final 01/19/17- 1109 ML Organism 1 Negative Shiga Toxin 1 2 Immunochromatographic Assay CONTINUED ON NEXT PAGE * ML=Testing performed at Main Lab DEPARTMENT OF PATHOLOGY, [address] [place] [address] Emre Canales M.D. Director [facility] # [id number] Patient: TONE POST [id number] (Continued) Specimen: [id number] Collected: 01/17/17 Received: 01/17/17 (Continued) Procedure Result Reported Site Shiga Toxin 1 2 Final (continued) 01/19/17- 1109 C. difficile PCR Final 01/17/17- 1823 ML Organism 1 027 Presumptive NEGATIVE Organism 2 Toxigenic C.diff NEGATIVE Fecal Lactoferrin (Stool WBC) Final 01/17/17- 1751 ML Fecal Lactoferrin Positive by Immunoassay TEST LIMITATIONS: Assay detects elevated levels of lactoferrin released from fecal leukocytes as a marker of intestinal inflammation. The test may not be appropriate in immunocompromised persons. Fecal samples from breast fed infants should not be used with this assay. O P: Giardia/Cryptospor Screen Final 01/19/17- 1009 ML Organism 1 Neg Cryptosporidium/Giardia Giardia and cryptosporidium antigen testing performed by enzyme immunoassay. If patient is immunocompromised or has traveled to or is from a developing country, a full ova and parasite exam with microscopic (OPMIC) is recommended. All samples will be held one month in case full ova and parasite testing is requested. Contact the Microbiology Department at [phone]. TEST LIMITATIONS: As with all diagnostic procedures, the results obtained should be used in conjunction with other clinical information available the physician, including confirmation by another method. Negative results can occur in samples containing antigen below lower limits of detection of the assay. One negative specimen does not rule out the possibility of a parasitic infection. To improve detection it is recommended that three specimens be collected on CONTINUED ON NEXT PAGE * ML=Testing performed at Main Lab DEPARTMENT OF PATHOLOGY, [address] [place] [address] Emre Canales M.D. Director [facility] # [id number] Patient: TONE POST [id number] (Continued) Specimen: [id number] Collected: 01/17/17 Received: 01/17/17 (Continued) Procedure Result Reported Site O P: Giardia/Cryptospor Screen Final (continued) 01/19/17- 1009 separate days over a period of not more than seven days. The use of colonic washes, aspirates or other diluted sample types has not been established and could affect the performance of the assay. Stool samples contaminated with an oily or particulate base (eg. Barium, mineral oil etc.) could interfere with the test and are not recommended. * ML - MAIN LAB ([facility]) . END OF REPORT * ML=Testing performed at Main Lab DEPARTMENT OF PATHOLOGY, [address] [place] [address] Emre Canales M.D. Director [facility] # [id number] 11 Because ethnic data is not always readily available, this report includes an eGFR for both -Americans and non- Americans. The National Kidney Disease Education Program (NKDEP) does not endorse the use of the MDRD equation for patients that are not between the ages of 18 and 70, are , have extremes of body size, muscle mass, or nutritional status, or are non- or non-. According to the National Kidney Foundation, irrespective of diagnosis, the stage of the disease is based on the level of kidney function: Stage Description GFR(mL/min/1.73 m(2)) 1 Kidney damage with normal or decreased GFR 90 2 Kidney damage with mild decrease in GFR 60-89 3 Moderate decrease in GFR 30-59 4 Severe decrease in GFR 15-29 5 Kidney failure <15 (or dialysis) 12 Serum levels of PSA measured using the [employer] DXI Hybritech immunoassay should not be interpreted as absolute evidence of the presence or absence of disease. The PSA value should be used in conjunction with other pertinent clinical diagnostic procedures. The values obtained with different assay methods or kits cannot be used interchangeably. 13 Because ethnic data is not always readily available, this report includes an eGFR for both -Americans and non- Americans. The National Kidney Disease Education Program (NKDEP) does not endorse the use of the MDRD equation for patients that are not between the ages of 18 and 70, are , have extremes of body size, muscle mass, or nutritional status, or are non- or non-. According to the National Kidney Foundation, irrespective of diagnosis, the stage of the disease is based on the level of kidney function: Stage Description GFR(mL/min/1.73 m(2)) 1 Kidney damage with normal or decreased GFR 90 2 Kidney damage with mild decrease in GFR 60-89 3 Moderate decrease in GFR 30-59 4 Severe decrease in GFR 15-29 5 Kidney failure <15 (or dialysis) 14 SEE RESULT BELOW Name: TONE POST : [address]: Jonathan Sanford MD Acct: [id number] Unit: [id number] AGE: 70 Location: [place] Re03/18/16 SEX: M Status: REG SDC SPEC: [id number] OZ: 03/18/16-[address]: Jonathan Sanford MD REQ: [id number] RECD: 03/18/16 STATUS: DONTA RIDDLE DR: Benigno Lewis MD _ ORDERED: CONSULT W/ FS, FS ADDITIONAL, LEVEL IV/3 THIS IS A CORRECTED REPORT 03/20/16-1124 Corrected Report FINAL DIAGNOSIS 1. Skin, right forehead, excision: -- Skin with scar and prior biopsy site related changes. -- No residual neoplasia identified. 2. Skin, right forehead, wider margin, 10-2:00, excision: -- No residual neoplasia identified. 3. Skin, right forehead, wider 4-8:00 margin, excision: -- No residual neoplasia identified. PATHOLOGY SURGICAL CONSULT Frozen section (FS)/Touch Prep (TP)/Gross Consult (GC) FS1) Skin, right forehead, excision: a. Scar, excised. (EP) b. No residual squamous cell carcinoma. (EP) Findings discussed with Dr Sanford on 03/18/16 at 1326. PRE-OPERATIVE DIAGNOSIS Squamous cell carcinoma right forehead; 1) suture wood 12 o'clock superior margin; 2) suture wood true 12 o'clock margin; 3) suture wood true 6 o'clock margin CONTINUED ON NEXT PAGE * ML=Testing performed at Main Lab DEPARTMENT OF PATHOLOGY, [address] [place] [address] Emre Canales M.D. Director [facility] # [id number] RUN DATE: 03/20/16 [facility] LAB LIVE PAGE 2 Patient: TONE POST [id number] (Continued) GROSS DESCRIPTION (Continued) GROSS DESCRIPTION 1. The specimen is received fresh labeled, Excision Squamous Cell Carcinoma Right Forehead, Suture wood the 12:00 Superior Margin, and consists of a 1.5 x 1.2 cm love-pink ovoid skin fragment excised to a depth of 0.5 cm. There is an attached suture, which designates the 12:00 superior margin. The specimen is inked as follows: 9: 00 half black, 3:00 half blue and 12:00 end green, serially sectioned from 12:00 to 6:00 and entirely submitted for frozen section microscopy. The frozen section residue is submitted in cassettes FSA and FSB to include ends in cassette FSA. 2. The specimen is received in formalin labeled, Wider 10:00-2:00 Margin, Suture wood the True 12:00 Margin, and consists of a 1.7 x 1.0 cm love-hadley triangular hairbearing skin fragment excised to a depth of 0.5 cm. There is a suture attached to one long axis, which designates the true 12:00 margin. The specimen is inked as follows: 9:00 half black and 3:00 half blue, serially sectioned from 12:00 to 6:00 and entirely submitted in cassettes A and B to include true 12:00 margin in cassette A. 3. The specimen is received in formalin labeled, Wider 4:00-8:00 Margin, Suture wood the True 6:00 Margin, and consists of a 1.8 x 1.1 cm love-hadley triangular hairbearing skin fragment excised to a depth of 0.5 cm. There is a suture attached to one long axis, which designates the true 6:00 margin. The specimen is inked as follows: 9:00 half black and 3:00 half blue, serially sectioned from 12:00 to 6:00 and entirely submitted in cassettes A and B to include true 6:00 margin in cassette A. Signed (signature on file) Dora Seals MD 1722 END OF REPORT * ML=Testing performed at Main Lab DEPARTMENT OF PATHOLOGY, [address] [place] [address] Emre Canales M.D. Director [facility] # [id number] 15 Because ethnic data is not always readily available, this report includes an eGFR for both -Americans and non- Americans. The National Kidney Disease Education Program (NKDEP) does not endorse the use of the MDRD equation for patients that are not between the ages of 18 and 70, are , have extremes of body size, muscle mass, or nutritional status, or are non- or non-. According to the National Kidney Foundation, irrespective of diagnosis, the stage of the disease is based on the level of kidney function: Stage Description GFR(mL/min/1.73 m(2)) 1 Kidney damage with normal or decreased GFR 90 2 Kidney damage with mild decrease in GFR 60-89 3 Moderate decrease in GFR 30-59 4 Severe decrease in GFR 15-29 5 Kidney failure <15 (or dialysis) 16 Because ethnic data is not always readily available, this report includes an eGFR for both -Americans and non- Americans. The National Kidney Disease Education Program (NKDEP) does not endorse the use of the MDRD equation for patients that are not between the ages of 18 and 70, are , have extremes of body size, muscle mass, or nutritional status, or are non- or non-. According to the National Kidney Foundation, irrespective of diagnosis, the stage of the disease is based on the level of kidney function: Stage Description GFR(mL/min/1.73 m(2)) 1 Kidney damage with normal or decreased GFR 90 2 Kidney damage with mild decrease in GFR 60-89 3 Moderate decrease in GFR 30-59 4 Severe decrease in GFR 15-29 5 Kidney failure <15 (or dialysis) 17 Serum levels of PSA measured using the [employer] DXI Hybritech immunoassay should not be interpreted as absolute evidence of the presence or absence of disease. The PSA value should be used in conjunction with other pertinent clinical diagnostic procedures. The values obtained with different assay methods or kits cannot be used interchangeably. 18 SEE RESULT BELOW Name: POSTTONE Danilo : [address]: Benigno Galvan MD Acct: [id number] Unit: [id number] AGE: 70 Location: [facility] Re06/29/15 SEX: M Status: REG REF SPEC: [id number] OZ: 06/29/15-[address] [facility] [address]: Benigno Galvan MD REQ: [id number] RECD: 06/29/15 STATUS: SOUT _ ORDERED: LEVEL IV FINAL DIAGNOSIS Skin, left lower eyelid, biopsy: -- Verruca vulgaris. CLINICAL HISTORY In the left infra-orbital region there is an approximate 3 mm pink, erythematous papule, soft, slightly verrucous. Present many months to a year PRE-OPERATIVE DIAGNOSIS Neoplasm of uncertain behavior of skin GROSS DESCRIPTION The specimen is received in formalin labeled, Shave Biopsy-Left Lower Eyelid , and consists of a 0.3 x 0.2 cm love white irregular skin shave, which is inked and submitted entirely in one cassette. Signed (signature on file) Dora Seals MD 1030 END OF REPORT * ML=Testing performed at Main Lab DEPARTMENT OF PATHOLOGY, [address] [place] [address] Emre Canales M.D. Director [facility] # [id number] 19 FASTING 12 HOUR 20 FASTING 12 HOUR 21 Serum levels of PSA measured using the [employer] DXI Hybritech immunoassay should not be interpreted as absolute evidence of the presence or absence of disease. The PSA value should be used in conjunction with other pertinent clinical diagnostic procedures. The values obtained with different assay methods or kits cannot be used interchangeably. 22 Desirable <150 Borderline high 150-199 High 200-499 Very High >500 23 Desirable <200 Borderline high 200-239 High >239 24 Low <40 Desirable: 40-60 High: >60 25 Desirable <100 Near Optimal 100-129 Borderline high 130-159 High 160-189 Very High >189 Procedures Date Code Description Status 11/19/2017 85906 ECG Monitor/Recording W/Scanning Completed 11/18/2017 55254 ECG Monitor/Review & Interpretation, W/Visual Completed Superimpos Scan 11/18/2017 30178 ECG Monitor/Recording W/Scanning Completed 09/28/2017 52628 Electrocardiogram Complete Completed 06/15/2017 76928 Brief Emotional/Behav Assessment W/ Scoring Doc Per Completed Standard Inst 06/15/2017 23743 Electrocardiogram Complete Completed 04/24/2017 08016713 Colonoscopy Completed 03/03/2017 05914 Inj Tendon/Ligament/Cyst Completed 09/08/2015 52217 Destruction Premalignant Skin Lesions, 2-14,Ea Completed 09/08/2015 45998 Destruction Premalignant Skin Lesions Completed 07/27/2015 03359 Destruction Of Skin Lesions Up To 14 Flat Completed Warts/Molluscum Contag 06/29/2015 21593 Destruction Premalignant Skin Lesions Completed 06/29/2015 46397 Shave Skin Lesion <.6CM Completed Face/Ear/Eyelid/Nose/Lip/Mucous Membr Encounters Type Date Location Provider Dx Diagnosis Office Visit 08/23/2018 Main Office Benigno Galvan, R10.32 Left lower quadrant 2:30p M.D. pain M54.5 Low back pain M51.36 Other intervertebral disc degeneration, lumbar region M17.11 Unilateral primary osteoarthritis, right knee N40.1 Benign prostatic hyperplasia with lower urinary tract symp N39.0 Urinary tract infection, site not specified Office Visit 05/25/2018 9:45a Main Office Mandy M51.36 Other intervertebral Ashley Pelaez disc degeneration, lumbar region M25.552 Pain in left hip M16.12 Unilateral primary osteoarthritis, left hip N42.9 Disorder of prostate, unspecified D75.1 Secondary polycythemia Office Visit 05/07/2018 2:15p Main Office Benigno Galvan M25.561 Pain in right M.D. knee M17.11 Unilateral primary osteoarthritis, right knee M25.552 Pain in left hip M51.36 Other intervertebral disc degeneration, lumbar region Office Visit 03/22/2018 4:30p Main Office Benigno Galvan M25.552 Pain in left M.D. hip Office Visit 03/05/2018 11:45a Main Office Benigno Galvan M25.562 Pain in left M.D. knee Office Visit 12/21/2017 11:30a Main Office Benigno Galvan M25.561 Pain in right M.D. knee M17.11 Unilateral primary osteoarthritis, right knee Office Visit 12/16/2017 9:00a Main Office Benigno Galvan M65.331 Trigger finger, M.D. right middle finger K21.9 Gastro-esophageal reflux disease without esophagitis K52.832 Lymphocytic colitis M25.561 Pain in right knee I49.1 Atrial premature depolarization I49.3 Ventricular premature depolarization I10 Essential (primary) hypertension Office Visit 11/30/2017 10:15a Main Office Benigno Galvan M.D. R00.2 Palpitations I49.3 Ventricular premature depolarization I49.1 Atrial premature depolarization Z23 Encounter for immunization Z71.89 Other specified counseling Office Visit 11/06/2017 11:45a Main Office Benigno Galvan M.D. R00.2 Palpitations R55 Syncope and collapse Office Visit 09/28/2017 2:30p Main Office Benigno Galvan M.D. R00.2 Palpitations R06.00 Dyspnea, unspecified R07.9 Chest pain, unspecified Office Visit 09/04/2017 1:45p Main Office Benigno Galvan K52.832 Lymphocytic M.D. colitis M25.541 Pain in joints of right hand M25.542 Pain in joints of left hand M65.331 Trigger finger, right middle finger L90.5 Scar conditions and fibrosis of skin Office Visit 08/10/2017 2:30p Main Office Benigno Galvan K52.832 Lymphocytic M.D. colitis M67.471 Ganglion, right ankle and foot M51.36 Other intervertebral disc degeneration, lumbar region Office Visit 05/27/2017 9:45a Main Office Benigno Galvan K52.832 Lymphocytic M.D. 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 L60.1 Onycholysis R19.7 Diarrhea, unspecified R10.32 Left lower quadrant pain Office Visit 03/03/2017 2:00p Main Office Benigno Galvan, M65.331 Trigger finger, M.D. right middle finger Office Visit 01/16/2017 2:15p Main Office Benigno Galvan, R19.7 Diarrhea , M.D. unspecified K21.9 Gastro-esophageal reflux disease without esophagitis Office Visit 12/26/2016 11:15a Main Office Benigno Galvan, R07.9 Chest pain, M.D. unspecified S20.211A Contusion of right front wall of thorax, initial encounter W18.09xA Striking against oth object w subsequent fall, init encntr Y93.01 Activity, walking, marching and hiking Office Visit 12/15/2016 8:55a Main Office Benigno Galvan, I10 Essential (primary) M.D. hypertension K21.9 Gastro-esophageal reflux disease without esophagitis R00.2 Palpitations M65.331 Trigger finger, right middle finger L40.9 Psoriasis, unspecified H65.23 Chronic serous otitis media, bilateral Z23 Encounter for immunization Office Visit 11/11/2016 1:30p Main Office Mir Galvan1.[facility] esophageal Ashley Pelaez reflux disease without esophagitis I10 Essential (primary) hypertension R00.2 Palpitations Office Visit 08/01/2016 3:45p Main Office Mir Galvan1.[facility] esophageal Ashley Pelaez reflux disease without esophagitis R07.9 Chest pain, unspecified Office Visit 07/11/2016 2:30p Main Office Mir Galvan1.9 [facility] esophageal Ashley Pelaez reflux disease without esophagitis R07.9 Chest pain, unspecified M51.36 Other intervertebral disc degeneration, lumbar region L02.31 Cutaneous abscess of buttock R21 Rash and other nonspecific skin eruption Office Visit 06/13/2016 9:45a Main Office Benigno Galvan, I10 Essential (primary) M.D. hypertension M54.5 Low back pain M51.36 Other intervertebral disc degeneration, lumbar region K21.9 Gastro-esophageal reflux disease without esophagitis Z12.5 Encounter for screening for malignant neoplasm of prostate Z11.59 Encounter for screening for other viral diseases Z00.01 Encounter for general adult medical exam w abnormal findings Office Visit 05/09/2016 4:15p Main Office Benigno Galvan, L02.31 Cutaneous abscess M.D. of buttock Office Visit 04/18/2016 9:30a Main Office Benigno Galvan, I10 Essential (primary) M.D. 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 spine K21.9 Gastro-esophageal reflux disease without esophagitis Z23 Encounter for immunization Office Visit 11/13/2015 11:00a Main Office Benigno Galvan, R10.12 Left upper M.D. quadrant pain L57.0 Actinic keratosis Office Visit 09/08/2015 9:00a Main Office Benigno Galvan, Z85.828 Personal history M.D. of other malignant neoplasm of skin L90.5 Scar conditions and fibrosis of skin L57.0 Actinic keratosis Office Visit 07/27/2015 10:45a Main Office Benigno Galvan, B07.9 Viral wart, M.D. unspecified Office Visit 06/29/2015 2:45p Main Office Benigno Galvan, D48.5 Neoplasm of M.D. uncertain behavior of skin L57.0 Actinic keratosis Z85.828 Personal history of other malignant neoplasm of skin Office Visit 06/13/2015 9:45a Main Office Benigno Galvan, Z00.01 Encounter for M.D. general adult medical exam w abnormal findings K21.9 Gastro-esophageal reflux disease without esophagitis K58.9 Irritable bowel syndrome without diarrhea R03.0 Elevated blood-pressure reading, w/o diagnosis of htn M51.36 Other intervertebral disc degeneration, lumbar region Z12.5 Encounter for screening for malignant neoplasm of prostate D75.1 Secondary polycythemia Office Visit 05/22/2015 11:15a Main Office Benigno Galvan, L40.9 Psoriasis, M.D. unspecified J31.0 Chronic rhinitis K21.9 Gastro-esophageal reflux disease without esophagitis K58.9 Irritable bowel syndrome without diarrhea R10.12 Left upper quadrant pain M54.5 Low back pain M51.36 Other intervertebral disc degeneration, lumbar region R03.0 Elevated blood-pressure reading, w/o diagnosis of htn N52.9 Male erectile dysfunction, unspecified Office Visit 12/12/2014 11:15a Main Office Benigno Galvan M.D. 785.1 Palpitations 786.50 Pain Chest Unspec 530.81 Esophageal Reflux v03.82 Streptococcus Pneumoniae Vaccination Spec Other V07.2 Prophylactic Immunotherapy Office Visit 09/15/2014 11:00a Main Office Benigno Galvan 786.50 Pain Chest M.D. Unspec 530.81 Esophageal Reflux Office Visit 08/08/2014 1:45p Main Office Benigno Galvan, 380.22 Otitis Externa M.D. Other Acute Office Visit 08/07/2014 10:40a Main Office [place], 380.22 Otitis Externa Kaia, RPA-C Other Acute Office Visit 04/25/2014 2:00p Main Office Benigno Galvan, V70.0 Examination General M.D. Medical Routine [facility] 724.2 Lumbago V76.44 Screening For Malig Lobo Prostate 722.52 Intervertebral Disc Degeneration Lumbar 564.1 Irritable Bowel Syndrome 289.0 Polycythemia Secondary 272.0 Hypercholesterolemia Pure V76.44 Screening For Malig Lobo Prostate 607.84 Impotence Organic Origin Office Visit 01/28/2014 11:00a Main Office Benigno Galvan, 529.8 Tongue Other Spec M.D. Conditions v04.81 Need For Prophylactic Vaccination & Inoculation/Influenza v07.2 Prophylactic Immunotherapy 789.04 Pain Abdominal Left Lower Quadrant 112.0 Candidiasis Mouth Office Visit 01/16/2014 8:55a Main Office Benigno Galvan, 564.1 Irritable Bowel M.D. Syndrome 560.32 Fecal Impaction Office Visit 09/21/2013 9:45a Main Office Benigno Galvan, 719.41 Pain Joint M.D. Shoulder Region 726.10 Bursae & Tendon Disorders Shoulder Region Unspec 796.2 Blood Pressure Reading Elevated W/O Hypertension 564.1 Irritable Bowel Syndrome 289.0 Polycythemia Secondary V10.83 History Personal Malignant Neoplasm Of The Skin Other 365.9 Glaucoma Unspec 696.1 Psoriasis Other Plan of Treatment Future Appointment(s):06/22/2019 8:30 am - Benigno Galvan M.D. at Main [id number]/17/2018 8:55 am - Benigno Galvan M.D. at Main [id number]/26/2016 - Benigno Galvan M.D.R07.9 Chest pain, ftmtugmicmwU45.211A Contusion of right front wall of thorax, initial rwxxcrrcaJ06.09xA Striking against other object with subsequent fall, initial kdabjzwccW64.01 Activity, walking, marching and hiking
--- OUTSIDE RECORDS SUMMARY | 2018-09-02 14:43 | XMS REPORT | Continuity of Care Document ---
:1945 External Reference #:[id number] Author Name Janay Cox Care Team Providers Name Role Phone Benigno Galvan MD Primary Care Physician Unavailable Payers Date Identification Numbers Payment Provider Subscriber Effective: 2018 Policy Number: [id number] Medicare Tian Post PayID: [id number] [address] [place] [address] Expires: 2013 Policy Number: [id number] [facility] Tian Post (Oon) PayID: [id number] [address] [place] [address] Policy Number: [id number] [facility] Tian Post PayID: [id number] [address] [place] [address] Advance Directives Description No Information Available Problems Active Problems Provider Date Psychosexual dysfunction associated Beto Malik M.D.,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 Spondylolisthesis L5/S1 level Bree Hernandez MD Onset: 06/16/2017 Scoliosis deformity of spine Bree Hernandez MD Onset: 06/16/2017 Low back pain Bree Hernandez MD Onset: 06/16/2017 Irritable bowel syndrome Beto Malik M.D.,FACP Onset: 02/22/2008 Antonino's disease Beto Malik M.D.,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/2007 Paroxysmal supraventricular Beto Malik M.D.,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/2007 tachycardia Family History Date Family Member(s) Observation Comments General Pancreatic Cancer General ALS Father ALS Father Back problems Father due to ALS () Mother Pancreatic Cancer Mother due to Pancreatic Cancer () Social History Type Date Description Comments Sex Unknown Marital Status 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 Tobacco Use Start: Unknown Never Smoked Cigarettes ETOH Use Denies alcohol use Recreational Drug Use Denies Drug Use Tobacco Use Start: Unknown Patient has never smoked Smoking Status Reviewed: 08/11/18 Patient has never smoked Exercise Type/Frequency Exercises regularly Allergies, Adverse Reactions, Alerts Description No Known Drug Allergies Medications Active Medications SIG Qnty Indications Ordering Date Provider Viagra PO 0.5, 1, 2 Tab 20tabs Beto Barba 05/28/2007 50mg Tablets 1H Before Isauro Malik M.D.,FACP Gold Vogel Intensive apply as needed Unknown Healing 1-6% Cream Gaviscon 2-3 tabs by mouth Unknown 80-14.2mg Chewtabs as needed Dutasteride 1 cap by mouth Unknown 0.5mg Capsules every day Alfuzosin HCL ER 1 by mouth every Unknown 10mg Tablets day ER 24HR Nexium 24HR 1 by mouth every Unknown 20mg Capsules DR day Melatonin 1 cap at bedtime Unknown 5mg Capsules Aleve 1 tab twice a day Unknown 220mg Capsules as needed Aspirin 81 Low Dose 1 by mouth every Unknown 81mg day Chewtabs Preservision Areds 2 1 by mouth two Unknown Areds 2 times per day Capsules Folic Acid 1 by mouth Unknown 400mcg Tablets everyday Vitamin B Complex 1 by mouth every Unknown Tablets day Probiotic 1 by mouth every Unknown Capsules day Culturelle 1 by mouth Unknown Capsules everyday Saw [place] 1 cap by mouth 60caps Unknown 450mg Capsules three times a day Ubiquinol 1 by mouth every Unknown 100mg Capsules day Move Free Joint Health 1 tab by mouth Unknown Advanced every day Tablets Posture-D 1 tab by mouth Unknown Calcium/Magnesium twice a day [phone] Tablets Magnesium 1 tab by mouth 30tabs Unknown 250mg Tablets twice a day SM Bivins-3 Fish Oil 1 cap daily by Unknown 1200mg mouth Capsules Centrum Silver 50+Men 1 tab daily by Unknown 50+Men mouth Tablets Osteo Bi-Flex Advanced 1 tab by mouth 60tabs Unknown Triple Strength three times a day Tablets Caffeine 1/2 tab by mouth Unknown 200mg Tablets twice daily Latanoprost daily each eye Unknown 0.005% Solution Hydrochlorothiazide 1 tab by mouth as Mandy, 12.5mg needed MD Benigno Capsules History Medications Librax tid po prn 90caps 564.1 Beto Barba 05/17/2008 - 5-2.5mg Capsules Ashley Malik,FACP 06/16/2017 Saw [place] bid Beto Barba 04/26/2008 - Concentrate Ashley Malik,FACP 08/09/2018 160mg Capsules Multi Vitamin 1 PO qd 90tabs Beto Barba 04/26/2008 - Tablets Ashley Malik,FACP 08/09/2018 Nystop apply to 60G 112.3 Thananart, 04/10/2008 - [id number]/GM affected areas Ashley uKo 06/16/2017 Powder qid x 2-3 wks Levsin qd prn 20tabs 564.1 Chevy, 01/24/2008 - 0.125mg Tablets Ashley Kuo 05/17/2008 Vfend 1tab bid 20tabs Beto Barba 01/19/2008 - 200mg Tablets Ashley Malik,FACP 02/22/2008 Naprosyn 1 po bid prn 60tabs 726.19 Beto Barba 07/19/2007 - 500mg Tablets Ashley Malik,FACP 01/12/2008 Omeprazole qd po 90caps 726.19 Beto Barba 07/19/2007 - 20mg Ashley Malik,FACP 06/16/[address] Mustafa 1 by mouth every 90caps Benigno Galvan, - 100mg day 08/10/2018 Capsules Apriso Reina Rubio, - 0.375gm Caps ER 06/16/2017 24HR Dicyclomine HCL HaleighBenigno westfall, - 10mg 06/16/2017 Capsules Travatan Z Unknown - 0.004% 06/16/2017 Solution Metronidazole Apply A Thin Unknown - 0.75% Film To Affected 10/26/2017 Cream Areas 1 To 2 Times A Day Nexium 1 by mouth every Unknown - 20mg Capsules DR day 10/26/2017 Fish Oil 1 capsule by Unknown - 1200mg mouth every day 08/08/2018 Capsules Calcium Citrate W/ 1 daily Unknown - Vit D 08/09/2018 1200mg Co Q-10 daily Unknown - 08/09/2018 Medications Administered in Office Medication SIG Qnty Indications Ordering Provider Date Technetium TC 99M Billy Ovalles, DO [facility] 10/28/2017 Tetrofosmin, Per Unit Dose Up To 40 Millicuries Injection Depomedrol 80MG Mateo Corea M.D. 03/20/2014 Injection Depomedrol 80MG Mateo Corea M.D. 10/02/2011 Injection Depomedrol 80MG Mateo Corea M.D. 09/08/2011 Injection Immunizations CPT Code Status Date Vaccine Lot # [id number] Given 01/24/2008 Influenza Virus 3Yrs & Over [id number] Vital Signs Date Vital Result Comment 08/11/2018 12:46pm Height 71 inches 5'11" Weight 213.50 lb Heart Rate 78 /min BP Systolic Sitting 140 mmHg BP Diastolic Sitting 73 mmHg Pain Level 2 O2 % BldC Oximetry 97 % BMI (Body Mass Index) 29.8 kg/m2 06/16/2017 10:39am Height 71 inches 5'11" Weight 215.00 lb BP Systolic Sitting 138 mmHg BP Diastolic Sitting 60 mmHg Pain Level 3 BMI (Body Mass Index) 30.0 kg/m2 04/19/2014 9:36am Height 71 inches 5'11" Weight 218.00 lb Heart Rate 74 /min BMI (Body Mass Index) 30.4 kg/m2 03/20/2014 11:00am Height 71 inches 5'11" Weight 218.00 lb Pain Level 4 BMI (Body Mass Index) 30.4 kg/m2 05/17/2008 2:58pm Height 72 inches 6'0" Weight 229.00 lb Heart Rate 74 /min BP Systolic Sitting 130 mmHg BP Diastolic Sitting 80 mmHg BMI (Body Mass Index) 31.1 kg/m2 04/26/2008 3:55pm Height 72 inches 6'0" Weight 229.00 lb Heart Rate 72 /min BP Systolic Sitting 118 mmHg BP Diastolic Sitting 74 mmHg BMI (Body Mass Index) 31.1 kg/m2 04/10/2008 11:30am Height 72 inches 6'0" Weight 229.00 lb Heart Rate 74 /min BP Systolic Sitting 132 mmHg BP Diastolic Sitting 80 mmHg BMI (Body Mass Index) 31.1 kg/m2 02/22/2008 9:39am Height 72 inches 6'0" Weight 227.00 lb Heart Rate 68 /min BP Systolic Sitting 140 mmHg BP Diastolic Sitting 82 mmHg BMI (Body Mass Index) 30.8 kg/m2 01/24/2008 8:30am Height 72 inches 6'0" Weight 225.00 lb Heart Rate 68 /min BP Systolic Sitting 132 mmHg BP Diastolic Sitting 78 mmHg BMI (Body Mass Index) 30.5 kg/m2 01/12/2008 4:06pm Height 72 inches 6'0" Weight 225.00 lb Heart Rate 70 /min BP Systolic Sitting 122 mmHg BP Diastolic Sitting 80 mmHg BMI (Body Mass Index) 30.5 kg/m2 10/13/2007 10:34am Height 72 inches 6'0" Weight 229.00 lb Heart Rate 60 /min BP Systolic Sitting 144 mmHg BP Diastolic Sitting 80 mmHg Body Temperature 98.3 F O2 % BldC Oximetry 95 % BMI (Body Mass Index) 31.1 kg/m2 07/19/2007 11:42am Height 72 inches 6'0" Weight 233.00 lb Heart Rate 74 /min BP Systolic Sitting 126 mmHg BP Diastolic Sitting 82 mmHg BMI (Body Mass Index) 31.6 kg/m2 Results Test Date Facility Test Result H/L Range Note Stool Specimen [facility] Stool Specimen L^LIQUID^ STCO 1 Description [address] [place] [address] [phone] Stool For Blood [facility] Stool For Blood NEGATIVE Negative [address] [place] [address] [phone] Stool Color BAXTER Stool Form NONFORMED Stool Consistency LIQUID Stool For 04/23/2008 [facility] Stool For WBCS NONE Negative Polys [address] (Polys) [place] [address] [phone] Laboratory 04/23/2008 [facility] Campylobacter NO GROWTH OF 2 test finding [address] CAM <[place] [address] NOTE> [phone] Stool Cult Sensitivity NEGATIVE FOR THE <SEE NOTE> 3 Shiga Toxin 1 And 2 (Ehec) N^NEGATIVE BY IM <SEE NOTE> 4 Rotavirus - Stool N^NEGATIVE BY IM <SEE NOTE> 5 C. Difficile Toxin A B TEST LIMITATIONS <SEE NOTE> 6 P33S 04/23/2008 [facility] Sodium 136 mmol/L [address] [place] [address] [phone] Potassium 3.5 mmol/L 3.5-5.0 Chloride 107 mmol/L 101-111 Co2 (Carbon Dioxide) 23.0 mmol/L 22-32 Anion Gap 6.0 mmol/L 2-11 7 Glucose 95 mg/dL 70-100 8 BUN 10 mg/dL 6-24 Creatinine 0.90 mg/dL 0.50-1.40 One Over Creatinine 1.10 BUN/Creatinine Ratio 11.1 8-20 Calcium 8.4 mg/dL 8.1-9.9 9 Total Protein 6.3 GM/DL 6.2-8.1 Albumin 3.4 GM/DL 3.2-5.2 Globulin 2.9 GM/DL 2-4 Albumin/Globulin Ratio 1.2 1-3 Bilirubin Total 0.9 mg/dL 0.4-1.5 Alkaline Phosphatase 67 U/L 39-117 Alt (SGPT) 40 U/L 17-63 Ast (Sgot) 28 U/L 12-42 Laboratory test 04/23/2008 [facility] Amylase Stat 26 U/L Low 30-[address] [place] [address] [phone] Lipase 21 U/L Low 22-51 CBC With Manual 04/23/2008 [facility] White Blood 6.6 CUMM 4.8-10.[address] [place] [address] [phone] Red Cell Count 5.51 CUMM 4.6-6.2 Hemoglobin 17.1 g/dL 14.0-18.0 Hematocrit 49 % 42-52 Mean Corpuscular Volume 89 um3 80-94 Mean Corpuscular Hemoglob 31 pg 27-31 Mean Corpuscular HGB Cone 35 g/dL 32-36 Redcell Distribution WDTH 14 % 10.5-15 Platelet Count 250 CUMM 150-450 Mean Platelet Volume 8.2 um3 7.4-10.4 Polysegmented Neutrophil 76 % 38-83 Band Neutrophil 4 % 0-8 Lymphocyte 11 % Low 25-47 Monocyte 8 % 0-13 Basophil 1 % 0-2 Absolute Neutrophil Count 5.2 Anisocytosis SLIGHT Urinalysis W/Microscopic Stat 04/23/2008 [facility] Ua Color YELLOW [address] [place] [address] [phone] Appearance-Urine CLEAR Specific [place]-Ur 1.008 Low 1.010-1.030 Esterase-Urine NEGATIVE Negative Nitrite NEGATIVE Negative Asfuyalxgjcm-Kp-EOW NEGATIVE Negative Protein-Urine NEGATIVE Negative PH-Urine 5.0 5-9 Blood-Urine NEGATIVE Negative Ketones-Urine NEGATIVE Negative Bilirubin-Ur NEGATIVE Negative Glucose-Urine NEGATIVE Negative RBC-Urine NONE SEEN 0-2 Mucus Urine SMALL Amorphous Sed-U RARE Laboratory test 04/23/2008 [facility] C Reactive 0.5 mg/dL Less Than finding 101 [facility] Protein 0.5 [place] [address] [phone] Liver Function 01/18/2008 [facility] Total Protein 6.5 GM/DL 6.2-8.1 Panel [address] [place] [address] [phone] Albumin 3.6 GM/DL 3.2-5.2 Globulin 2.9 GM/DL 2-4 Albumin/Globulin Ratio 1.2 1-3 Bilirubin Total 0.8 mg/dL 0.4-1.5 Bilirubin Direct 0.1 mg/dL 0.1-0.5 Indirect Bilirubin 0.7 mg/dL 0.1-0.75 Alkaline Phosphatase 74 U/L 39-117 Alt (SGPT) 32 U/L 17-63 Ast (Sgot) 30 U/L 12-42 Laboratory test 01/13/2008 [facility] Fungal Cult NO GROWTH OF [address] Other Sources MYC <[place] [address] NOTE> [phone] Cystic Fibrosis 01/13/2008 [facility] Cystic Fibrosis Blood ( ) [place] [address] [phone] Cystic Fibrosis Specimen Id [id number] () Cystic Fibrosis Order Date 15 Jan 2008 10:5 <SEE NOTE> () 11 Cystic Fibrosis Reas For Refer . () 12 Cystic Fibrosis Method . () 13 Cystic Fibrosis Result SEE BELOW () 14 Cystic Fibrosis Interpretation . () 15 Cystic Fibrosis Reviewed By Dl Miguel P <SEE NOTE> () 16 Cystic Fibrosis Release Date 20 Jan 2008 11:5 <SEE NOTE> () 17 Immunoglobulins Serum Quant 01/13/2008 [facility] Iga 192 mg/dL 50[address] [place] [address] [phone] Igm 123 mg/dL 50-300 Igg 1360 mg/dL 600-1500 18 Immunofixation 01/13/2008 [facility] Albumin 3.57 GM/DL 3.0- 4.35 (Electro) Serum [address] [place] [address] [phone] Alpha 1 0.22 GM/DL 0.09-0.33 Alpha 2 0.96 GM/DL 0.59-1.18 Beta 0.78 GM/DL 0.68-1.02 Gamma 1.47 GM/DL 0.76-1.60 Albumin % 51.0 % 46-63 Alpha 1 % 3.1 % 1.2-5.3 Alpha 2 % 13.7 % 9-17 Beta % 11.1 % 10-16 Gamma % 21.0 % 12-22 A/G Ratio 1.0 0.9-2 Total Protein 7.0 GM/DL 6.2-8.1 Spep Comments (SEE NOTE) 19 Serum Immunofixation (SEE NOTE) 20 Vad 01/13/2008 [facility] Vad Final NONREACTIVE Nonreactive [address] [place] [address] [phone] CBC With 01/13/2008 [facility] White Blood 7.0 CUMM 4.8-10.[address] [place] [address] [phone] Red Cell Count 5.64 CUMM 4.6-6.2 Hemoglobin 17.3 g/dL 14.0-18.0 Hematocrit 50 % 42-52 Mean Corpuscular Volume 88 um3 80-94 Mean Corpuscular Hemoglob 31 pg 27-31 Mean Corpuscular HGB Cone 35 g/dL 32-36 Redcell Distribution WDTH 14 % 10.5-15 Platelet Count 295 CUMM 150-450 Mean Platelet Volume 7.9 um3 7.4-10.4 Polysegmented Neutrophil 63 % 38-83 Lymphocyte 24 % 5-47 Monocyte 11 % 0-13 Eosenophil 1 % 0-6 Basophil 1 % 0-2 Absolute Neutrophil Count 4.4 Anisocytosis SLIGHT Laboratory test 10/07/2007 [facility] TSH 2.38 MIU/ML 0.34- 5.60 22 finding [address] [place] [address] [phone] FSH 9.64 MIU/ML 23 Lipid Profile 10/07/2007 [facility] Triglyceride 90 mg/dL 40- 200 (Trig/Chol/HDL) [address] [place] [address] [phone] Cholesterol 184 mg/dL Less Than 200 24 High Density Lipoprotein 35 mg/dL Low 40-60 25 Cholesterol/HDL Ratio 5.26 AVERAGE High 1-4.97 Low Density Lipoprotein 131 mg/dL High Less Than 100 26 Laboratory test 10/07/2007 [facility] PSA Screening 1.27 NG/ML 0-4 27 finding [address] [place] [address] [phone] Basic Metabolic 10/07/2007 [facility] Sodium 139 mmol/L 135- 145 Panel [address] [place] [address] [phone] Potassium 5.0 mmol/L 3.5-5.0 Chloride 107 mmol/L 101-111 Co2 (Carbon Dioxide) 28.0 mmol/L 22-32 Anion Gap 4.0 mmol/L 2-11 28 Glucose 94 mg/dL 70-105 BUN 18 mg/dL 6-24 Creatinine 1.1 mg/dL 0.5-1.4 One Over Creatinine 0.90 BUN/Creatinine Ratio 16.4 8-20 Calcium 9.0 mg/dL 8.1-9.9 29 Free Testosterone 10/07/2007 [facility] Free Testosterone 21.8 ng/dL 9-30 30 [address] [place] [address] [phone] Total Testosterone 840 ng/dL 240-950 31 1 N^NONFORMED^STFORM M^MUCOID^STOTH 2 NO GROWTH OF CAMPYLOBACTER AFTER 48 HOURS 3 NEGATIVE FOR THE ENTERIC PATHOGENS - SALMONELLA, SHIGELLA, AND YERSINIA VIBRIO AND E. COLI 0157 NOT ROUTINELY TESTED FOR IN A STOOL CULTURE. PLEASE SUBMIT SAMPLE WITH SPECIFIC REQUEST FOR DESIRED ORGANISM(S). 4 N^NEGATIVE BY IMMUNOCHROMATOGRAPHIC ASSAY^ST1 N^NEGATIVE BY IMMUNOCHROMATOGRAPHIC ASSAY^ST2 5 N^NEGATIVE BY IMMUNOASSAY^RV 6 TEST LIMITATIONS: The performance of specimens from pediatric patients has not been evaluated. A positive test confirms the presence of toxins A and/or B only. A physician must use the test results in conjunction with other diagnostic procedures and the patient's clinical condition to establish a diagnosis of C.difficile-associated disease. Isolates of C. sordellii may react with this test due to immunological identitiy of the C. sordellii toxins. Two distinct groups have been identified that can harbor C. difficile asymptomatically at very high rates. Colonization rates of up to 50% and higher have been reported in infants and rates of up to 32% in cystic fibrosis patients. N^NEGATIVE BY IMMUNOASSAY^CDT 7 Anion gap measurement may be of limited value in the presence of any alkalosis, especially in a combined acid base disorder. . 8 Note change in reference range as of 11/25/07. The change was based on recommendations from the [place] [employer]. 9 Please note change in reference range effective 07 . 10 NO GROWTH OF MYCOTIC ORGANISMS AFTER 3 WEEKS 11 15 Jan 2008 10:56 12 Carrier screen for Cystic Fibrosis (CF). Individual is of unspecified ancestry, and has no family history of CF. 13 The multiplex PCR-based assay from [employer] is used to detect all 23 mutations specified in the [place] [employer] ([employer]) standards for population based carrier screening ([id number], [id number], G542X, G85E, R117H, T8411U, 621+1 G>T, 711+1 G>T, R7610A, R334W, R347P, A455E, 1717-1 G>A, R553X, R560T, G551D, 1898+1 G>A, 2184delA, 2789+5 G>A, 3120+1 G>A, Q8564K, 3659delC, and 3849+10kb C>T). Additionally, the 394delTT, E60X, R75X, 405+3 A>C, 406-1 G>A , Y122X, 444delA, R117C, G178R, L206W, 935delA, tzelqI727, G330X, R352Q, S364P, 1078delT, R347H, V520F, G480C, Q493X, 1677delTA, A559T, S549N, S549R, 1812-1 G>A, 1898+5G>T, 2183AA>G, 2307insA, G622D, 0683ucy9>A, 2143delT, K710X, Q890X, 2869insG, 3120G>A, 5873sev9, C6155O, B1766U, W5236Q, G7584F, X5922V, K5490V, 3791delC, X0296Z, 3905insT, J8460V, and 3876delA mutations are detected. Poly T determination and confirmatory testing of homozygous results are performed as reflex tests when appropriate. 14 RESULT: None of the listed mutations were detected. 15 Having excluded the presence of the listed mutations, the risk that this individual is a carrier of another Cystic Fibrosis mutation depends on their ethnic/racial background. Since this information was not provided, we are unable to provide a revised risk specific for this individual. For Mixed ancestry, this risk is 1/120. This risk calculation assumes there is no family history of CF. Additionally this calculation was based on a mutation detection rate of 80% for Mixed ancestry and a population carrier frequency of 1/25. There is considerable variability both in the carrier frequency and detection rate among different ethnic groups. The risk estimates provided, therefore, are our best approximation given the information available to us for this population. CAUTIONS: Rare polymorphisms exist that could lead to false negative or positive results. If results obtained do not match the clinical findings, additional testing should be considered. Test results should be interpreted in context of clinical findings, family history, and other laboratory data. Misinterpretation of results may occur if the information provided is inaccurate or incomplete. Bone marrow transplants from allogenic donors will interfere with testing. Call [facility] for instructions for testing patients who have received a bone marrow transplant. 16 Dl Miguel PhD 17 20 Jan 2008 11:50 Please note change in reporting title and reporting fuentes effective 01/04/2008. Test Performed by: [facility] Dpt of Lab Med and Pathology [address] [place] [address] [employer] Tutor: Alejandro Arthur III, M.D. 18 Test Performed by: [facility] Med [facility] Pathology [address] [place] [address] [employer] Social [employer] Tutor: Alejandro Arthur III, M.D. 19 NORMAL ELECTROPHORETIC PATTERN. 20 NORMAL IMMUNOFIXATION PATTERN. 21 FINAL INTERPRETATION: No HIV antibody is detected. . This information has been disclosed to you from confidential records which are protected by [facility] law. State law prohibits you from making further disclosure of this information without the specific written consent of the person to whom it pertains, or as otherwise permitted by law. Any unauthorized further disclosure in violation of state law may result in a fine or detention sentence or both. General authorization for the release of medical or other information is not, except in limited circumstances set forth in Part 63, Title 10, of [facility], sufficient authorization for further disclosure. Disclosure of confidential HIV information that occurs as the result of a general authorization for the release of medical or other information will be in violation of the state law and may result in a fine or a detention sentence. . 22 FASTING 23 NORMAL RANGE MALES 1 - 20 NORMALLY MENSTRUATING FEMALES - Follicular Phase 3 - 9 - Mid-Cycle Peak 4 - 23 - Luteal Phase 1 - 6 POSTMENOPAUSAL FEMALES 16 - 114 . 24 CHOLESTEROL INTERPRETATION: Desirable: Less than 200 MG/DL Borderline-High Risk: 200-239 MG/DL High-Risk: 240 MG/DL and over 25 HDL INTERPRETATION: Undesirable: High Risk: Less than 40 MG/DL Desirable: Low Risk: Greater than 60 MG/DL 26 LDL INTERPRETATION: Low Risk Optimal Level: LDL Less than 100 MG/DL Near or Above Optimal: LDL 100-129 MG/DL Borderline High Risk: LDL 130-159 MG/DL High Risk: LDL 160-189 MG/DL Very High Risk: LDL Greater than 189 MG/DL 27 * SERUM LEVELS OF PSA MEASURED USING THE 2 Minutes ACCESS HYBRITECH IMMUNOASSAY SHOULD NOT BE INTERPRETED ABSOLUTE EVIDENCE OF THE PRESENCE OR ABSENCE OF DISEASE. THE PSA VALUE SHOULD BE USED IN CONJUNCTION WITH OTHER PERTINENT CLINICAL DIAGNOSTIC PROCEDURES. 28 Anion gap measurement may be of limited value in the presence of any alkalosis, especially in a combined acid base disorder. . 29 Please note change in reference range effective 07 . 30 Test Performed by: [facility] D[facility] of Lab Med and Pathology [address] [place] [address] [employer] Tutor: Alejandro Arthur III, M.D. 31 Test Performed by: [facility] D[facility] Med and Pathology [address] [place] [address] [employer] Social [employer] Tutor: Alejandro Arthur III, M.D. Procedures Date Code Description Status 10/28/2017 84699 Stress Test Completed 10/28/2017 05618 Myocardial Perfusion Imaging Tomographic (Spect) Multiple Completed Studies 03/20/201470910 Inject/Drain Joint/Bursa Major W/O US Completed 01/09/2014 41818 Rad Exam; Knee, Ap&L Completed 01/09/2014 44352 Rad Exam; Knee, Ap&L Completed 10/02/2011 26757 Inject/Drain Joint/Bursa Major W/O US Completed 09/08/2011 36136 Inject/Drain Joint/Bursa Major W/O US Completed 10/15/2006 23146 ECHO/Stress Completed 10/15/2006 65623 ECHO/Stress Completed 10/15/2006 41111 Stress Test Completed Encounters Type Date Location Provider Dx Diagnosis Office Visit 06/16/2017 [facility] M54.5 Low back pain 11:00a Of Charlie Hernandez MD M41.9 Scoliosis, unspecified M43.17 Spondylolisthesis, lumbosacral region M51.36 Other intervertebral disc degeneration, lumbar region Office Visit 04/19/2014 9:30a Orthopedic Mateo Corea, 727.09 Synovitis & Services Of M.D. Tenosynovitis Other C.M.A. 716.96 Arthropathy Unspec Lower Leg Office Visit 03/20/2014 11:00a Orthopedic Mateo Corea, 716.96 Arthropathy Unspec Services Of M.DSana Lower Leg C.M.A. 844.9 Sprains & Strains Knee & Leg Unspec Office Visit 01/09/2014 8:15a Orthopedic Services Mateo Corea, 844.9 Sprains & Of C.M.A. M.D. Strains Knee & Leg Unspec Office Visit 10/24/2011 10:00a Orthopedic Services Moe Kiran 840.4 Sprains & Of C.M.A. M.D. Strains Rotator Cuff (Capsule) 726.10 Bursae & Tendon Disorders Shoulder Region Unspec Office Visit 10/02/2011 9:30a Orthopedic Mateo Corea, 840.4 Sprains & Services Of C.M.A. M.D. Strains Rotator Cuff (Capsule) 726.10 Bursae & Tendon Disorders Shoulder Region Unspec Office Visit 09/08/2011 8:30a Orthopedic Mateo Corea, 840.4 Sprains & Services Of C.M.A. M.D. 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 Retail Beto Barba 564.1 Irritable Bowel AT Tony Malik M.D.,FACP Syndrome 473.9 Sinusitis Chronic Unspec 279.3 Immunity Deficiency Unspec Office Visit 01/24/2008 8:30a DO Not Use Building Supplies Salesperson Retail eBto Barba 112.0 Candidiasis Mouth AT Tony Malik M.D.,[facility] 562.11 Diverticulitis Colon W/O Hemorrhage V04.81 Need For Prophylactic Vaccination & Inoculation/Influenza v04.81 Need For Prophylactic Vaccination & Inoculation/Influenza Office Visit 01/12/2008 4:00p DO Not Use Charlie Barba 279.3 Immunity AT Tony Malik M.D.,[facility] Deficiency Unspec 562.11 Diverticulitis Colon W/O Hemorrhage 473.9 Sinusitis Chronic Unspec Office Visit 10/13/2007 10:40a DO Not Use Charlie Barba V70.0 Examination AT Tony Malik M.D.,[facility] General Medical Routine AT Health Care Facility 427.0 PSVT Paroxysmal Supraventricular Tachycardia 535.40 Gastritis Other Spec W/O Hemorrhage 733.00 Osteoporosis Unspec 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
--- NOTE | 2018-09-02 14:50 | ED ---
Back Pain - HPI Summary HPI Summary: 73 year old M brought in by ambulance to [facility] accompanied by with a chief complaint of pinching back pain radiating towards his upper back, buttocks, and legs since two hours ago. The patient rates the pain _/10 in severity. Symptoms aggravated by movement and straightening his back. Symptoms alleviated by position changes. Patient denies urinary and GI symptoms. Patient takes Aleve. He does not take medication for his back pain. Patient does not use walker at home. Patient saw Dr. Hernandez one week ago for his back pain. - History of Current Complaint Time Seen by Provider: 09/02/18 14:39 Hx Obtained From: Patient Onset/Duration: Lasting Hours - 2, Still Present Onset/Duration: Still Present Timing: Constant - Allergies/Home Medications Allergies/Adverse Reactions: Allergies Allergy/AdvReac Type Severity Reaction Status Date / Time lactose Allergy Severe GI Upset Verified 06/18/18 10:42 chocolate flavor Allergy HEART Verified 06/18/18 10:42 ARRYTHMIA metronidazole [From Flagyl] AdvReac THRUSH Verified 06/18/18 10:42 PMH/Surg Hx/FS Hx/Imm Hx Previously Healthy: No Endocrine/Hematology History: Denies: Hx Diabetes Cardiovascular History: Reports: Hx Hypertension - ON MEDS, Other Cardiovascular Problems/Disorders - EXERCISE-INDICED ARRHYTHMIA Denies: Hx Pacemaker/ICD Respiratory History: Reports: Hx Sleep Apnea Denies: Hx Asthma GI History: Reports: Hx Diverticulosis, Hx Gastroesophageal Reflux Disease, Hx Ulcer, Other GI Disorders - spastic colon, colitis History: Reports: Hx Benign Prostatic Hyperplasia, Other Problems/ Disorders - URINARY RETENTION - on meds Denies: Hx Dialysis, Hx Renal Disease Musculoskeletal History: Reports: Hx Arthritis, Hx Back Problems, Hx Bursitis - left shoulder, Hx Orthopedic Injury - s/p left lower leg fracture, Hx Tendonitis , Other Musculoskeletal History - s/p baeu knee surgeries Sensory History: Reports: Hx Cataracts, Hx Contacts or Glasses, Hx Glaucoma, Hx Hearing Problem - some loss Denies: Hx Hearing Aid Opthamlomology History: Reports: Hx Cataracts, Hx Contacts or Glasses, Hx Glaucoma Neurological History: Reports: Hx Migraine, Other Neuro Impairments/Disorders - pain clinic pt Psychiatric History: Denies: Hx Panic Disorder - Cancer History Cancer Type, Location and Year: SQUAMOUS CELLS - Surgical History Surgery Procedure, Year, and Place: BILATERAL KNEE ARTHROSCOPY; LOWER LT LEG ORIF; SINUS SURGERY; SQUAMOUS CELL REMOVALS Hx Anesthesia Reactions: No Infectious Disease History: Denies: Traveled Outside the [place] in Last 30 Days - Family History Known Family History: Positive: Other - melanoma, skin CA Negative: Cardiac Disease - Social History Alcohol Use: None Hx Substance Use: No Substance Use Type: Reports: None Hx Tobacco Use: No Smoking Status (MU): Never Smoked Tobacco Review of Systems All Other Systems Reviewed And Are Negative: Yes Physical Exam - Summary Physical Exam Summary: VITAL SIGNS: Reviewed. GENERAL: Patient is a well-developed and nourished MALE who is lying comfortable in the stretcher. Patient is not in any acute respiratory distress. HEAD AND FACE: No signs of trauma. No ecchymosis, hematomas or skull depressions. No sinus tenderness. EYES: PERRLA, EOMI x 2, No injected conjunctiva, no nystagmus. EARS: Hearing grossly intact. Ear canals and tympanic membranes are within normal limits. MOUTH: Oropharynx within normal limits. NECK: Supple, trachea is midline, no adenopathy, no JVD, no carotid bruit, no c- spine tenderness, neck with full ROM. BACK: Spinal muscle spasm and tenderness in the right side and lower back with radiation to right buttocks and right lower extremity CHEST: Symmetric, no tenderness at palpation LUNGS: Clear to auscultation bilaterally. No wheezing or crackles. CVS: Regular rate and rhythm, S1 and S2 present, no murmurs or gallops appreciated. ABDOMEN: Soft, non-tender. No signs of distention. No rebound no guarding, and no masses palpated. Bowel sounds are normal. EXTREMITIES: FROM in all major joints, no edema, no cyanosis or clubbing. NEURO: Alert and oriented x 3. No acute neurological deficits. Speech is normal and follows commands. SKIN: Dry and warm. Triage Information Reviewed: Yes Vital Signs Reviewed: Yes Back Pain Course/Dx - Course Assessment/Plan: 73 year old M brought in by ambulance to [facility] accompanied by with a chief complaint of pinching back pain radiating towards his upper back, buttocks, and legs since two hours ago. The patient rates the pain 4/10 in severity. Symptoms aggravated by movement and straightening his back. Symptoms alleviated by position changes. Patient denies urinary and GI symptoms. Patient takes Aleve. He does not take medication for his back pain. Patient does not use walker at home. Patient saw Dr. Hernandez one week ago for his back pain. Patient doesnt have any history of heavy lifting, for any history of trauma. Patient has multiple x-rays and MRIs in the recent weeks. I discussed my physical exam, findings and test results with Dr. Romero and he agreed for the patient to be given medications for the sciatica and said that if the patient is able to ambulate, then he can be discharged home with follow-up with him at his office. Therefore, the patient was given Toradol, Decadron, Robaxin and Percocet and symptoms improved. The patient is able to ambulate without any difficulty therefore the patient will be discharged home with follow-up with PCP and neurosurgery. The patient was given prescription for muscle relaxant and pain medication. Patient denies any fevers, denies any trauma, any heavy lifting, denies any urinary or fecal dysfunction before discharge. - Diagnoses Provider Diagnoses: Sciatica of right side - Provider Notifications Discussed Care Of Patient With: Bree Hernandez Time Discussed With Above Provider: 15:02 Instructed by Provider To: Other - Dr. Hernandez, neurosurgery, agrees with medications and recommends discharging patient to follow up in his office in the next couple of days Discharge - Sign-Out/Discharge Documenting (check all that apply): Patient Departure - Discharge Patient Received Moderate/Deep Sedation with Procedure: No - Discharge Plan Condition: Stable Disposition: HOME Prescriptions: Methocarbamol TAB* [Robaxin 500 MG TAB*] 500 mg PO TID PRN #12 tab PRN Reason: Spasms - Back Methocarbamol TAB* [Robaxin 500 MG TAB*] 500 mg PO TID PRN #12 tab PRN Reason: Spasms - Back Oxycodone HCl/Acetaminophen [Percocet 5-325 mg Tablet] 1 each PO Q6H PRN #12 tablet MDD 4 PRN Reason: Pain oxyCODONE/Acetamin 5/325 MG* [Percocet 5/325 TAB*] 1 tab PO Q6H PRN #12 tab MDD 4 PRN Reason: Pain Patient Education Materials: Sciatica (ED) Referrals: Bree Hernandez MD [Medical Doctor] - 3 Days Additional Instructions: Follow up with Dr. Hernandez in 3 days. Return to the Emergency Department for new or worsening symptoms. - Billing Disposition and Condition Condition: STABLE Disposition: Home - Attestation Statements Document Initiated by Sadeibe: Yes Documenting Scribe: Coby Woods Provider For Whom Oniel is Documenting (Include Credential): Diogo Meza MD Scribe Attestation: ICoby, scribed for Diogo Meza MD on 09/02/18 at 1855. Scribe Documentation Reviewed: Yes Provider Attestation: The documentation as recorded by the [email or web address] accurately reflects the service I personally performed and the decisions made by me, Diogo Meza MD Status of Scribe Document: Viewed
[2018-09-02 15:31] VITALS: BP 136/71
== END | disposition home or self-care (01) ==
LOC: ED 14:36
DX: M54.31 Sciatica, right side (principal); M54.9 Dorsalgia, unspecified; I10 Essential (primary) hypertension; K21.9 Gastro-esophageal reflux disease without esophagitis; N40.0 Benign prostatic hyperplasia without lower urinary tract symptoms
CPT/HCPCS: 96372; 99282; A9270-GY; J1100; J1885

== ENCOUNTER 2018-09-20 07:21 | Observation (INO) | payer MEDICARE ==
--- NOTE | 2018-09-16 18:33 | HP ---
CC: Dr. Galvan and Dr. Rouse * ADMITTING HISTORY AND PHYSICAL: DATE OF ADMISSION: 09/20/18 ADMITTING DIAGNOSES: 1. Benign prostatic hyperplasia. 2. Partial urinary retention. PLANNED PROCEDURE: Transurethral resection of prostate. SURGEON: Dr. Flores. HISTORY OF PRESENT ILLNESS: Tian Post is a 73-year-old gentleman who has been evaluated for voiding symptoms and has been noted to be in partial urinary retention with residual urine volume ranging from 330 to 439 cc. He has been on medication for BPH including alfuzosin and Avodart but in spite of that on his most recent evaluation he had a postvoid residual of 439 cc. He is now being brought in for transurethral resection of prostate. PAST MEDICAL HISTORY: Significant for: 1. Hypertension. 2. Glaucoma. 3. Gastroesophageal reflux. PAST SURGICAL HISTORY: Significant for: 1. Bilateral knee cartilage surgery. 2. Open reduction and internal fixation for left leg injury. 3. Sinus surgery. MEDICATIONS ON ADMISSION: 1. Avodart 0.5 mg daily. 2. Alfuzosin 10 mg daily. 3. Latanoprost eye drops for glaucoma. 4. Nexium daily p.r.n. 5. Aleve p.r.n. ALLERGIES AND INTOLERANCES: FLAGYL. FAMILY HISTORY: His father had prostate cancer. SOCIAL HISTORY: He is a nonsmoker. REVIEW OF SYSTEMS: He is otherwise in excellent health. There is no history of diabetes mellitus or any other major systemic illness. He had an evaluation including a stress test in [address] Ovalles, which was reported normal. PHYSICAL EXAMINATION GENERAL: Reveals a pleasant, elderly gentleman. VITAL SIGNS: Blood pressure 138/80, pulse 72 per minute regular, saturation 96 % on room air, temperature 97.8. LUNGS: Clear bilaterally. CARDIOVASCULAR EXAM: Regular rate and rhythm. S1, S2. ABDOMEN: Soft without masses. IMPRESSION: A 73-year-old gentleman with partial urinary retention who has failed medical therapy. He is now being brought in for transurethral resection of prostate. [id number]/[facility] #: [id number] MTDD
[~2018-09-20 07:21] MED LIST changes: +Acetaminophen TAB* 325 MG PO ONE; +Buffered Lidocaine 1% SYRIN* 1 ML/SYRINGE INTRADERM ONE; -Dexamethasone IV* 4 MG/ML 1 ML (4 MG) IM ONE; +Famotidine IV* 10 MG/ML 2 ML (20 mg) ONE; +Gentamicin ADULT (*) 160 MG in NS 0.9% 100 ML* 100 ML IVPB ONE; -Ketorolac INJ* 60 MG/2 ML VIAL IM ONE; +Lactated Ringers 1000 ML Bag* 1,000 ML IV SCH; -Methocarbamol TAB* 500 MG PO ONE; -oxyCODONE/Acetamin 5/325 MG* TAB PO ONE
[2018-09-20] MEDS ORDERED: Buffered Lidocaine 1% SYRIN* 1 ML/SYRINGE INTRADERM ONE (07:47)
[2018-09-20] MEDS ORDERED: cefTRIAXone(*) 2 GM ADDV.VIAL IVPB ONE (07:47)
[2018-09-20] MEDS ORDERED: Acetaminophen TAB* 325 MG ONE (07:47)
[2018-09-20] MEDS ORDERED: fentaNYL* 50 MCG/ML 2 ML VIAL (100 MCG VIAL) ONE ×2 (08:22→11:38)
[2018-09-20] MEDS ORDERED: Midazolam* 1 MG/ML 2 ML VIAL (2 MG) ONE (08:23)
[2018-09-20] MEDS ORDERED: Dexamethasone IV* 4 MG/ML 1 ML (4 MG) ONE (09:13)
[2018-09-20] MEDS ORDERED: Propofol* 10 MG/ML 20 ML BTL ONE ×2 (09:13→10:26)
[2018-09-20] MEDS ORDERED: Ondansetron INJ* 2 MG/ML VIAL ONE (09:13)
[2018-09-20] MEDS ORDERED: Cisatracurium* 2 MG/ML MDV 5 ML ONE (09:13)
[2018-09-20] MEDS ORDERED: Succinylcholine* 20 MG/ML 10 ML VIAL ONE (09:13)
[2018-09-20] MEDS ORDERED: Lidocaine 2% PF * 5 ML VIAL ONE (09:32)
[2018-09-20] MEDS ORDERED: Naloxone* 0.4 MG/ML 1 ML VIAL IV PRN (09:34)
[2018-09-20] MEDS ORDERED: diPHENhydraMINE IV* 50 MG/ML 1 ml VIAL (BENADRYL) IV PRN (09:34)
[2018-09-20] MEDS ORDERED: DiMENhydriNATE IV* 50 MG/ML VIAL IV PUSH PRN (09:34)
[2018-09-20] MEDS ORDERED: Ondansetron INJ* 2 MG/ML VIAL IV PRN (09:34)
[2018-09-20] MEDS ORDERED: HYDROcodone/ACETAMIN 5-325 MG* 1 TAB PO PRN (09:34)
[2018-09-20] MEDS ORDERED: EPHEDrine (Pressors)* 50 MG/ML VIAL ONE (09:45)
[2018-09-20] MEDS ORDERED: Furosemide IV* 10 MG/ML 2 ML VIAL (20 MG) ONE (10:07)
[2018-09-20] MEDS: fentaNYL* 50 MCG/ML 2 ML VIAL (100 MCG VIAL) IV PRN ×2 (11:38→12:02)
--- NOTE | 2018-09-20 11:52 | OP ---
CC: Dr. Galvan; Dr. Ovalles * DATE OF OPERATION: 09/20/18 - ROOM #338 DATE OF : 45 SURGEON: Dr. Flores. ANESTHESIOLOGIST: Dr. Segovia. ANESTHESIA: General. PRE-OP DIAGNOSES: 1. Benign prostatic hypertrophy. 2. Partial urinary retention. POST-OP DIAGNOSES: 1. Benign prostatic hypertrophy. 2. Partial urinary retention. OPERATIVE PROCEDURE: Transurethral resection of prostate and transurethral incision of bladder neck. COMPLICATIONS: None. BLOOD LOSS: Approximately 50 cc. SPECIMEN: Prostate chips. CATHETER: A 24-Togolese Rueda. INDICATIONS: Tian Post is a 73-year-old gentleman with a history of partial urinary retention secondary to BPH. He would like to have transurethral resection of prostate done to improve his bladder emptying and I have discussed the procedure in detail including possible risks of bleeding, infection, erectile and ejaculatory dysfunction, and urinary incontinence. He appears to understand and wishes to proceed as planned. DESCRIPTION OF PROCEDURE: After induction of general anesthesia, the patient was placed in dorsal lithotomy position. Sequential compression devices were in place and functioning. The urethral meatus was carefully calibrated and dilated to 32-Togolese. Next, the resectoscope was introduced. The urethra was unremarkable. The prostate was moderately enlarged and obstructing and the bladder was noted to be quite full with residual of over 600 or 700 cc. There was no evidence of any suspicious bladder lesions noted. Using the resectoscope, transurethral resection of prostate was carried out in the standard fashion from the bladder neck down to the veru. The floor of the prostate was resected, followed by the lateral lobes and then the anterior lobe tissue. At no point was the resection carried beyond the veru in an effort to avoid any potential injury to the sphincter. Hemostasis was secured using the coagulating current. The right ureteral orifice was a little bit closer to the bladder neck, but I was careful to avoid any injury to it and at the end of the procedure, clear urine was seen effluxing from both orifices. The resected tissue was removed from the bladder using the [employer] evacuator and before concluding the procedure, bladder neck incisions were carried out at the 9, 3, and 12 o'clock positions in an effort to reduce the chances of postoperative bladder neck contracture. The patient tolerated the procedure satisfactorily and was transferred back to the recovery area after placement of the Rueda catheter in stable condition. [id number]/[facility] #: [id number] [facility]
[2018-09-20] MEDS ORDERED: HYDROcodone/ACETAMIN 5-325 MG* 1 TAB ONE (12:07)
[2018-09-20] MEDS ORDERED: Acetaminophen TAB* 325 MG PO PRN (14:00)
[2018-09-20] MEDS ORDERED: Lactated Ringers 1000 ML Bag* 1,000 ML IV SCH (14:00)
[2018-09-20] MEDS: Lactated Ringers 1000 ML Bag* 1,000 ML IV SCH ×2 (14:03→20:37)
[2018-09-20] MEDS: Docusate CAP* 100 MG PO SCH ×2 (14:04→20:31)
[2018-09-20] MEDS: Oxybutynin TAB* 5 MG PO SCH ×2 (16:09→23:48)
[2018-09-20] MEDS ORDERED: Furosemide IV* 10 MG/ML 2 ML VIAL (20 MG) IV ONE (20:01)
[2018-09-20] MEDS ORDERED: MELATONIN 2 MG PO SCH (21:00)
[2018-09-21] MEDS: Lactated Ringers 1000 ML Bag* 1,000 ML IV SCH (02:29)
[2018-09-21] MEDS: Oxybutynin TAB* 5 MG PO SCH ×2 (03:53→08:55)
[2018-09-21 07:12] LABS: Potassium 3.9 mmol/L (3.5-5.0)
[2018-09-21 07:17] LABS: BUN/Creatinine Ratio 17.2 (8-20); EGFR African American 89.7 (>60); EGFR Non-African American 74.1 (>60)
[2018-09-21 07:31] VITALS: BP 133/61
[2018-09-21] MEDS: Docusate CAP* 100 MG PO SCH (08:53)
[2018-09-21] MEDS ORDERED: Latanoprost 0.005%* 2.5 ml BTL BOTH EYES SCH (09:00)
[2018-09-21] MEDS ORDERED: cefTRIAXone(*) 2 GM in NS 0.9% 100 ML* 100 ML IVPB ONE (09:00)
[2018-09-21] MEDS ORDERED: Hydrochlorothiazide TAB* 25 MG PO SCH (09:00)
[2018-09-21] MEDS ORDERED: Pantoprazole TAB * 40 MG TAB PO SCH (09:00)
--- NOTE | 2018-09-21 22:26 | DS ---
CC: Dr. Galvan* DISCHARGE SUMMARY: DATE OF ADMISSION: 09/20/18 DATE OF DISCHARGE: 09/21/18 ADMITTING DIAGNOSES: 1. Benign prostatic hypertrophy. 2. Partial urinary retention. DISCHARGE DIAGNOSES: 1. Benign prostatic hypertrophy. 2. Partial urinary retention. SURGICAL PROCEDURE ON THIS ADMISSION: Transurethral resection of prostate on . SURGEON: Dr. Flores. ADMITTING HISTORY: Tian Post is a 73-year-old gentleman with a history of BPH and partial urinary retention refractory to medical management. For details, please see admitting history and physical. HOSPITAL COURSE: On 09/20/18, Mr. Post underwent transurethral resection of prostate under general anesthesia. Surgery was smooth and uneventful. He was monitored overnight and I examined him on 09/21/18. His Rueda catheter was in place draining light pink urine and his vital signs were stable. He was discharged home in stable condition for followup as per outpatient protocol. [id number]/[facility] #: [id number] [facility]
== END 2018-09-21 10:40 | disposition home or self-care (01) ==
LOC: OR 07:21 → SSU 09:01
PROVIDERS: ADMIT Urology; ATTEND Urology
DX: N40.0 Benign prostatic hyperplasia without lower urinary tract symptoms (principal); R33.9 Retention of urine, unspecified; I10 Essential (primary) hypertension; H40.9 Unspecified glaucoma; K21.9 Gastro-esophageal reflux disease without esophagitis
CPT/HCPCS: 36415; 80048; 88305; 96361; 96374; 96375; 96376; A9270-GY; G0378; J0330; J0696; J1100; J1580; J1940; J2250; J2405; J2704; J3010

== ENCOUNTER 2021-02-12 03:10 | Observation (INO) ==
[2021-02-12 06:28] LABS: Hematocrit 47 % (42-52); Mean Corpuscular HGB Conc 34 g/dL (31-36); Mean Corpuscular Hemoglobin 30 pg (27-31); Mean Corpuscular Volume 89 fL (80-94); Mean Platelet Volume 8.1 fL (7.4-10.4); Platelet Count 255 10^3/uL (150-450); Red Blood Count 5.26 10^6 /uL (4.18-5.48); Red Cell Distribution Width 14 % (10-15); White Blood Count 25.4 10^3/uL (3.5-10.8)
[2021-02-12 06:45] LABS: Albumin 3.7 g/dL (3.2-5.2); Calcium 8.8 mg/dL (8.6-10.3); Total Bilirubin 1.1 mg/dL (0.2-1.0)
[2021-02-12 06:51] LABS: Albumin/Globulin Ratio 1.2 (1-3); C Reactive Protein 86.57 mg/L (<8.01); Globulin 3.1 g/dL (2-4); Total Protein 6.8 g/dL (6.4-8.9)
[2021-02-12 07:16] LABS: ABS Lymphocytes 0.8 10^3/ul (1.0-4.8); ABS Monocytes 3.4 10^3/ul (0-0.8); ABS Neutrophils 21.1 10^3/ul (1.5-7.7); Lymphocyte % 3.1 %
[2021-02-12 07:16] LABS: Urine Appearance Clear; Urine Bilirubin Negative (Negative); Urine Blood Negative (Negative); Urine Color Yellow; Urine Glucose Negative (Negative); Urine Ketones Negative (Negative); Urine Nitrite Negative (Negative); Urine Protein Negative (Negative); Urine Specific Gravity 1.015 (1.002-1.030); Urine Urobilinogen Negative (Negative)
[2021-02-12 07:23] LABS: Urine Bacteria Absent (Absent); Urine Red Blood Cell Absent (Absent); Urine Squamous Epithelial Cell Present (Absent); Urine White Blood Cell 2+(11-20/hpf) (Absent)
[2021-02-12] MEDS ORDERED: DOXYcycline 100 MG in NS 0.9% 250 ml 250 ML IVPB ONE (07:24)
[2021-02-12 08:19] LABS: Potassium 3.9 mmol/L (3.5-5.0)
[2021-02-12] MEDS ORDERED: cefTRIAXone 2 GM ADDV.VIAL 2 GM in NS 0.9% 100 ml BAG 100 ML IVPB ONE (09:03)
[2021-02-12] MEDS ORDERED: Gentamicin ADULT 40 MG/ML VIAL (2 ML VIAL = 80 MG) IVPB ONE (09:05)
[2021-02-12 09:09] LABS: Rapid COVID-19 Molecular Undetected (Undetected)
[2021-02-12] MEDS ORDERED: Gentamicin ADULT 160 MG in NS 0.9% 100 ml BAG 100 ML IVPB ONE (10:00)
[2021-02-12] MEDS: Enoxaparin 40 MG/0.4 ML SYR SUBCUT SCH (12:06)
[2021-02-12] MEDS: DOXYcycline 100 MG in NS 0.9% 250 ml 250 ML IVPB SCH (21:04)
[2021-02-12] MEDS: [UNRECOGNIZED DRUG - OTHER] PO SCH (21:08)
[2021-02-12] MEDS: VIT C E ZN COPPR LUTEIN ZEAXAN PO SCH (21:08)
[2021-02-13 05:36] LABS: ABS Eosinophils 0.1 10^3/ul (0-0.6); ABS Lymphocytes 1.2 10^3/ul (1.0-4.8); ABS Monocytes 1.5 10^3/ul (0-0.8); ABS Neutrophils 12.2 10^3/ul (1.5-7.7); Eosinophil % 0.9 %; Hematocrit 46 % (42-52); Hemoglobin 15.5 g/dL (14.0-18.0); Lymphocyte % 7.9 %; Mean Corpuscular HGB Conc 34 g/dL (31-36); Mean Corpuscular Hemoglobin 30 pg (27-31); Mean Corpuscular Volume 90 fL (80-94); Mean Platelet Volume 7.8 fL (7.4-10.4); Platelet Count 240 10^3/uL (150-450); Red Blood Count 5.12 10^6 /uL (4.18-5.48); Red Cell Distribution Width 14 % (10-15); White Blood Count 15.1 10^3/uL (3.5-10.8)
[2021-02-13 05:53] LABS: C Reactive Protein 152.85 mg/L (<8.01); Calcium 8.7 mg/dL (8.6-10.3); Potassium 4.4 mmol/L (3.5-5.0)
[2021-02-13] MEDS: DOXYcycline 100 MG in NS 0.9% 250 ml 250 ML IVPB SCH (08:02)
[2021-02-13] MEDS: [UNRECOGNIZED DRUG - OTHER] PO SCH (08:03)
[2021-02-13] MEDS: VIT C E ZN COPPR LUTEIN ZEAXAN PO SCH (08:03)
[2021-02-13] MEDS: Enoxaparin 40 MG/0.4 ML SYR SUBCUT SCH (08:03)
[2021-02-13] MEDS ORDERED: Latanoprost 0.005% 2.5 ml BTL BOTH EYES SCH (09:00)
[2021-02-13] MEDS ORDERED: cefTRIAXone 1 gm/50 mL NS BAG 1 GM/50 ML BAG IVPB SCH (10:00)
[2021-02-13 12:40] VITALS: BP 147/68
== END 2021-02-13 15:30 | disposition home or self-care (01) ==
LOC: ED 03:10 → EDHOLD 03:10 → MED 16:12
PROVIDERS: ADMIT Internal Medicine; ATTEND Internal Medicine

== ENCOUNTER 2021-10-22 05:38 | Observation (INO) ==
[2021-10-22] MEDS ORDERED: Lactated Ringers 1000 ml BAG 1,000 ML IV SCH ×2 (06:00→10:00)
[2021-10-22] MEDS ORDERED: Buffered Lidocaine 1% SYRIN 1 ml INTRADERM ONE (06:00)
[2021-10-22] MEDS ORDERED: ceFAZolin 2 GM in NS PREMIX 2 GM/100 ML BAG IVPB ONE (06:24)
[2021-10-22] MEDS ORDERED: Midazolam 2 mg/2 ml VIAL 1 mg/ml 2 ml VIAL (2 mg) ONE (06:55)
[2021-10-22] MEDS ORDERED: fentaNYL 100 mcg/2 ml 50 MCG/ML VIAL ONE ×3 (06:55→11:10)
[2021-10-22] MEDS ORDERED: Ondansetron 4 mg VIAL 2 MG/ML 2 ml VIAL ONE (06:55)
[2021-10-22] MEDS ORDERED: Lidocaine 2% PF 5 ML VIAL ONE (06:55)
[2021-10-22] MEDS ORDERED: Propofol 0 MG/0 ML BTL ONE (06:55)
[2021-10-22] MEDS ORDERED: Dexamethasone IV 4 MG/ML VIAL 1 ml VIAL ONE (06:55)
[2021-10-22] MEDS ORDERED: ROPIVACAINE 5 MG/ML 30 ML BTL (0.5%) ONE (07:09)
[2021-10-22] MEDS ORDERED: Bupivacaine 0.25% SDV 30 ML ONE (07:26)
[2021-10-22] MEDS ORDERED: Rocuronium 50 mg VIAL 10 mg/ml 5 ml VIAL (50 mg) ONE ×2 (08:03→09:03)
[2021-10-22] MEDS ORDERED: Acetaminophen IV 1 GM/100ML 100 ML IV ONE (08:32)
[2021-10-22] MEDS ORDERED: Bupivacaine 0.5% PF 10 ML SDV VIAL INJ ONE (08:47)
[2021-10-22] MEDS ORDERED: Glycopyrrolate IV 0.2 MG/ML 1 ML VIAL ONE (08:49)
[2021-10-22] MEDS ORDERED: Ondansetron 4 mg VIAL 2 MG/ML 2 ml VIAL IV PRN ×2 (08:50→09:16)
[2021-10-22] MEDS ORDERED: Naloxone 0.4 mg VIAL 0.4 mg/ml 1 ml VIAL IV PRN (08:50)
[2021-10-22] MEDS ORDERED: HYDROmorphone 0.5 MG/0.5 ML SYRINGE ONE ×2 (08:50→08:53)
[2021-10-22] MEDS ORDERED: HYDROmorphone 1 MG/1 ML SYRINGE IV PRN (08:50)
[2021-10-22] MEDS ORDERED: Propofol 10 MG/ML 20 ML BTL ONE (09:00)
[2021-10-22] MEDS ORDERED: Magnesium Hydroxide LIQ 30 ML UDC PO PRN (09:16)
[2021-10-22] MEDS ORDERED: Morphine 2 MG/ML SYRINGE IV PRN (09:16)
[2021-10-22] MEDS ORDERED: Lactulose 30 ml UDC PO PRN (09:16)
[2021-10-22] MEDS ORDERED: Ondansetron ODT 4 mg TAB 4 MG TAB PO PRN (09:16)
[2021-10-22] MEDS ORDERED: ceFAZolin 1 GM ADVAN 1 GM in NS 0.9% 50 ML 50 ML IVPB SCH (10:00)
[2021-10-22] MEDS ORDERED: Sevoflurane BOTTLE ONE (10:17)
[2021-10-22] MEDS: fentaNYL 100 mcg/2 ml 50 MCG/ML VIAL IV PRN ×2 (11:16→11:59)
[2021-10-22] MEDS: ceFAZolin 1 GM ADVAN 1 GM in NS 0.9% 50 ML 50 ML IVPB SCH ×2 (15:55→23:52)
[2021-10-22] MEDS: Magnesium Hydroxide LIQ 30 ML UDC PO SCH (21:11)
[2021-10-22] MEDS: Timolol 0.5% OPTH.SOL BTL BOTH EYES SCH (21:11)
[2021-10-23 06:04] LABS: Hematocrit 43 % (42-52); Hemoglobin 14.7 g/dL (14.0-18.0); Mean Corpuscular HGB Conc 34 g/dL (31-36); Mean Corpuscular Hemoglobin 31 pg (27-31); Mean Corpuscular Volume 90 fL (80-94); Platelet Count 227 10^3/uL (150-450); Red Blood Count 4.78 10^6 /uL (4.18-5.48); Red Cell Distribution Width 14 % (10-15); White Blood Count 10.4 10^3/uL (3.5-10.8)
[2021-10-23 06:21] LABS: Calcium 8.7 mg/dL (8.6-10.3); Potassium 4.6 mmol/L (3.5-5.0); eGFR CKD-EPI 67.4 (>60)
[2021-10-23 06:29] LABS: ABS Eosinophils 0.1 10^3/ul (0-0.6); ABS Lymphocytes 1.3 10^3/ul (1.0-4.8); ABS Monocytes 1.8 10^3/ul (0-0.8); ABS Neutrophils 7.1 10^3/ul (1.5-7.7); Eosinophil % 1.1 %; Lymphocyte % 12.7 %
[2021-10-23] MEDS: Magnesium Hydroxide LIQ 30 ML UDC PO SCH (08:02)
[2021-10-23] MEDS: Timolol 0.5% OPTH.SOL BTL BOTH EYES SCH (08:02)
[2021-10-23] MEDS: ceFAZolin 1 GM ADVAN 1 GM in NS 0.9% 50 ML 50 ML IVPB SCH (08:07)
[2021-10-23] MEDS ORDERED: Vitamin THERAPEUTIC TAB PO SCH (09:00)
[2021-10-23] MEDS ORDERED: Latanoprost 0.005% 2.5 ml BTL BOTH EYES SCH (09:00)
[2021-10-23 11:36] VITALS: BP 124/48
[2021-10-23 12:29] LABS: Hepatitis B Surface Antigen Nonreactive (Nonreactive)
[2021-10-23 12:39] LABS: HIV 4th Generation Nonreactive (Nonreactive)
[2021-10-23 12:47] LABS: Hepatitis C Antibody Negative (Negative)
== END 2021-10-23 14:15 | disposition home or self-care (01) ==
LOC: AA 05:38 → INTOOBSV 05:38 → EDSTATUS 11:00 → SSU 13:04
PROVIDERS: ADMIT Orthopaedic Surgery Adult Reconstructive Orthopaedic Surgery; ATTEND Orthopaedic Surgery Adult Reconstructive Orthopaedic Surgery